=== PATIENT | female | born 1955 | race Caucasian/White ===

== ENCOUNTER → 2019-09-22 07:54 | Outpatient (CLI) | payer MEDICARE, SELFPAY ==
--- NOTE | ~2019-09-22 | MR_ITS ---
EXAMINATION: MR lumbar spine wo con EXAM DATE: 09/22/2019 08:29 INDICATION: Right leg pain., Now also starting in left leg. TECHNIQUE: Multi-sequential, multiplanar MR images of the lumbar spine were obtained without contrast . Sagittal T1, T2, T2 fat saturation images. Axial T2 weighted images. Comparison is made to prior examination from 03/29/2019. FINDINGS: There is 3 mm anterolisthesis L4 on L5 with moderate disc disease at this level. Mild disc disease at the other thoracolumbar levels. The conus medullaris terminates at the L1/2 level and has normal signal intensity and morphology. Diffusely mildly heterogeneous bone marrow, unchanged. No fo evelin suspicious marrow lesions. Large cystic liver lesion incompletely imaged, imaged portion is consi stent with a cyst. Level by level evaluation: T11-12: Disc does not extend beyond the endplate margin. Facet arthropathy: Mild. Neural foraminal stenosis: No stenosis. Central canal stenosis: No stenosis. T12-L1: Disc does not extend beyond the endplate margin. Facet arthropathy: Mild. Neural foraminal stenosis: No stenosis. Central canal stenosis: No stenosis. L1-L2: There is a minimal diffuse disc bulge. Facet arthropathy: Mild. Neural foraminal stenosis: No stenosis. Central canal stenosis: No stenosis. L2-L3: There is a mild diffuse disc bulge. Facet arthropathy: Mild to moderate. Neural foraminal stenosis: Mild bilateral. Central canal stenosis: Mild. L3-L4: There is a mild diffuse disc bulge. Facet arthropathy: Mild to moderate. Neural foraminal stenosis: Mild to moderate. Central canal stenosis: Mild. L4-L5: There is a mild to moderate diffuse disc bulge. Facet arthropathy: Severe. Bilateral synovial cysts into lateral recesses, larger on the right. Neural foraminal stenosis: Moderate bilateral. Central canal stenosis: Moderate to severe. L5-S1: There is a mild diffuse disc bulge. Facet arthropathy: Moderate. Neural foraminal stenosis: No stenosis. Central canal stenosis: No stenosis. Compared to March, there has been no significant interval change. IMPRESSION: L4-5 moderate to severe central canal stenosis, mostly from facet arthropathy and synovia l cysts, larger on the right. Reviewed, dictated and finalized at location G. IMPRESSION: L4-5 moderate to severe central canal stenosis, mostly from facet a rthropathy and synovial cysts, larger on the right.
== END ==
PROVIDERS: PCP Family Medicine
DX: M71.30 Other bursal cyst, unspecified site (principal); M48.061 Spinal stenosis, lumbar region without neurogenic claudication
CPT/HCPCS: 72148

== ENCOUNTER 2020-01-18 08:16 | Outpatient (NON) | payer MEDICARE, SELFPAY ==
[2020-01-18 18:18] LABS: SARS-CoV-2 RNA PCR Negative
== END 2020-01-18 08:17 ==
PROVIDERS: PCP Family Medicine; Visit Provider Nurse Practitioner Family
DX: Z20.828 Contact with and (suspected) exposure to other viral communicable diseases (principal)
CPT/HCPCS: 87635; C9803; U0003

== ENCOUNTER 2020-07-02 08:25 | Outpatient (CLI) | payer MEDICARE, SELFPAY | END 2020-07-02 08:26 | disposition home or self-care (01) | LOC: ANHAUDASC 08:29 | PROVIDERS: PCP Family Medicine; Visit Provider Family Medicine | DX: H91.93 Unspecified hearing loss, bilateral (principal); H93.13 Tinnitus, bilateral | CPT/HCPCS: 92557; 92567 ==

== ENCOUNTER 2020-12-24 08:18 | Outpatient (RCR) | payer MEDICARE, SELFPAY ==
[2020-12-24] MEDS: ACETAMINOPHEN 325 MG TABLET 650 MG PO (08:40)
[2020-12-24] MEDS: diphenhydrAMINE HCl CAP 25 MG CAPSULE PO (08:41)
[2020-12-24] MEDS: FAMOTIDINE 20 MG TABLET PO (08:41)
[2020-12-24 08:56] VITALS: BP 103/62; PULSE 71; RESP 18; TEMP 36.7; O2SAT 97
[2020-12-24 09:45] VITALS: BP 122/66
--- NOTE | 2020-12-25 15:07 | PC.NURSE ---
Patient with no concerns after covid antibody infusion. Patient feels just fine
== END 2020-12-24 15:43 | disposition home or self-care (01) ==
LOC: AMCINF 08:18
PROVIDERS: PCP Family Medicine; Referring Provider Family Medicine; Visit Provider Internal Medicine Hematology & Oncology
DX: Z23 Encounter for immunization (principal); U07.1 COVID-19
CPT/HCPCS: A9270; J7050; M0243; Q0244

== ENCOUNTER → 2021-05-18 10:11 | Outpatient (CLI) | payer MEDICARE, SELFPAY ==
--- NOTE | ~2021-05-18 | MM_ITS ---
EXAMINATION: MM screening [facility] BI w pat HISTORY: Screening mammogram TECHNIQUE: Craniocaudal and mediolateral oblique 3-D tomosynthesis images were obtained and synthetic 2-D images were generated. CAD analysis was submitted and interpreted. COMPARISON: 11/09/1917, 11/06/2017 BREAST PARENCHYMAL COMPOSITION: There are scattered areas of fibroglandular density. FINDINGS: Scattered benign-appearing calcifications are present. There is no evidence of suspicious m ass, calcification, or architectural distortion to suggest malignancy in either breast. There has bee n no suspicious interval change. IMPRESSION: 1. No mammographic evidence of malignancy. 2. Recommend routine screening mammography in one year. BI-RADS Category 2: Benign finding(s). Reviewed, dictated and finalized at location A. RY ARTIST
== END ==
PROVIDERS: PCP Obstetrics & Gynecology; Visit Provider Obstetrics & Gynecology
DX: Z12.31 Encounter for screening mammogram for malignant neoplasm of breast (principal)
CPT/HCPCS: 77063; 77067

== ENCOUNTER 2021-08-12 15:49 | Outpatient (CLI) | payer MEDICARE, SELFPAY ==
--- NOTE | 2021-08-12 16:17 | ECG_ITS ---
Measurements Intervals [place] Rate: 66 P: 22 SD: 200 QRS: -19 QRSD: 76 T: 14 QT: 419 QTc: 440 Interpretive Statements SINUS RHYTHM BASELINE ARTIFACT- I, II, III, AVR, AVL, AVF NORMAL ECG Electronically Signed On 08-12-2021 16:36:11 CDT by Tony Ventura D.O.
[2021-08-12 16:22] LABS: Hematocrit 39.1 % (37.0-47.0); Hemoglobin 13.4 g/dL (12.0-15.0); Mean Corpuscular HGB Conc 34.3 g/dl (32-36); Mean Corpuscular Hemoglobin 31.4 pg (26-34); Mean Corpuscular Volume 91.6 fl (80-100); Mean Platelet Volume 11.1 fl (7.4-10.4); Platelet Count Result 232 k/mm3 (150-375); Red Blood Count 4.27 M/mm3 (4.2-5.4); Red Cell Distribution Width 13.5 % (11.5-14.5); White Blood Count 7.2 K/mm3 (4.5-10.0)
[2021-08-12 17:16] LABS: Alanine Aminotransferase 18 U/L (6-35); Albumin Level 4.3 g/dL (3.5-5.1); Alkaline Phosphatase 105 U/L (38-126); Anion Gap 10 mmol/L (8-16); Aspartate Amino Transferase 31 U/L (14-36); Bilirubin,Total 0.8 mg/dL (0.2-1.3); Blood Urea Nitrogen 29 mg/dL (7-17); Carbon Dioxide 32 mmol/L (22-30); Chloride 89 mmol/L (98-107); Estimated Glomerular Filt Rate 38; Glucose 110 mg/dL (65-110); Potassium 2.7 mmol/L (3.4-5.0); Sodium 131 mmol/L (137-145)
== END 2021-08-12 15:50 | disposition home or self-care (01) ==
LOC: ANHLAB 15:53
PROVIDERS: PCP Obstetrics & Gynecology; Visit Provider Nurse Practitioner Family
DX: R07.9 Chest pain, unspecified (principal); Z20.828 Contact with and (suspected) exposure to other viral communicable diseases
CPT/HCPCS: 36415; 80053; 85027; 93005

== ENCOUNTER 2021-08-16 08:04 | Outpatient (CLI) | payer MEDICARE, SELFPAY ==
[2021-08-16 09:59] LABS: Anion Gap 10 mmol/L (8-16); Blood Urea Nitrogen 25 mg/dL (7-17); Calcium 9.1 mg/dL (8.4-10.2); Carbon Dioxide 27 mmol/L (22-30); Chloride 102 mmol/L (98-107); Estimated Glomerular Filt Rate 55; Glucose 121 mg/dL (65-110); Sodium 139 mmol/L (137-145)
== END 2021-08-16 08:05 | disposition home or self-care (01) ==
PROVIDERS: PCP Family Medicine; Visit Provider Nurse Practitioner Family
DX: U07.1 COVID-19 (principal); E87.6 Hypokalemia; N28.9 Disorder of kidney and ureter, unspecified
CPT/HCPCS: 36415; 80048; 84443

== ENCOUNTER 2021-09-20 08:25 | Outpatient (CLI) | payer MEDICARE, SELFPAY ==
--- NOTE | ~2021-09-20 | NM_ITS ---
EXAMINATION: NM trinh stress w perfusion DATE: 09/20/2021 11:41 INDICATION: Chest pain TECHNIQUE: Rest images were obtained following intravenous administration of 10.9 mCi Tc99m tetrofosm in (Myoview). The patient was infused intravenously with Lexiscan (Regadenoson). Then, 33.6 mCi Tc99m tetrofosmin (Myoview) was administered intravenously, and stress images were obtained. Data was clare nstructed into short axis and horizontal and vertical long axis SPECT images. Gated SPECT images were also obtained. COMPARISON: None. FINDINGS: There is no definite reversible or fixed perfusion abnormality to suggest ischemia or infar ction. There is normal left ventricular chamber size, wall motion and ejection fraction. Left ventr icular ejection fraction measures >70%. IMPRESSION: 1. Normal myocardial perfusion at rest and during stress. 2. Left ventricular ejection fraction measuring >70%. Reviewed, dictated and finalized at location A.
--- NOTE | 2021-09-20 08:47 | EST_ITS ---
Patient Info Name: Jinny Berrios Age: 66 years : 1955 Gender: Female Ht: 68 in Wt: 200 lbs BSA: 2.11 m2 HR: 68 bpm BP: 126 / 72 mmHg Heart Rhythm: Sinus Rhythm Exam Date: 09/20/2021 9:33 AM Exam Location: [facility] [place] Stress Patient Status: Outpatient Admit Date: 09/20/2021 Staff Ordering Physician: Jennifer Murdock Attending Provider: Jennifer Murdock Exercise Technologist: Lisa Kraus CT Exercise Physician: Tony Ventura DO Exam Type: CA stress trinh w NM Study Info Indications R07.9 - Chest pain, unspecified A regadenoson stress test was performed. Summary 1. 1. Negative lexiscan stress test for ischemic ST changes by ECG criteria. 2. 2. Stable hemodynamics throughout the test. 3. 3. Nuclear scan to follow and will be reported separately. Please correlate with it. 4. 4. Patient informed of the above results. Protocol: Lexiscan Stress ECG Details Stage: REST Duration (min): 0 min : 57 sec HR (bpm): 66 SBP (mmHg): 126 DBP (mmHg): 72 Stage: REST Duration (min): 5 min : 29 sec HR (bpm): 67 SBP (mmHg): 126 DBP (mmHg): 72 Stage: STAGE 1 Duration (min): 1 min : 0 sec HR (bpm): 73 SBP (mmHg): 126 DBP (mmHg): 81 Stage: RECOVERY Duration (min): 1 min : 0 sec HR (bpm): 91 SBP (mmHg): 126 DBP (mmHg): 81 Stage: RECOVERY Duration (min): 2 min : 0 sec HR (bpm): 93 SBP (mmHg): 126 DBP (mmHg): 81 Stage: RECOVERY Duration (min): 2 min : 45 sec HR (bpm): 90 SBP (mmHg): 118 DBP (mmHg): 76 Rest HR: 67 bpm Peak HR: 93 bpm Rest Sys BP: 126 mmHg Peak Sys BP: 126 mmHg Max Pred HR: 152 bpm % Max Pred HR: 61 % Target HR: 129 bpm Max RPP: 11,718 bpm*mmHg Termination Reason: Completed protocol Total Time: 1 min : 0 sec Rest Valenzuela BP: 72 mmHg Peak Valenzuela BP: 81 mmHg Total Dose: 0.4 mg Resting ECG Sinus rhythm. Stress ECG No ST changes. Arrhythmias None. Report Signatures
== END 2021-09-20 08:26 | disposition home or self-care (01) ==
PROVIDERS: PCP Family Medicine; Visit Provider Nurse Practitioner Family
DX: R07.9 Chest pain, unspecified (principal)
CPT/HCPCS: 78452; 93017; A9502; J2785

== ENCOUNTER 2021-11-16 07:52 | Outpatient (CLI) | payer MEDICARE, SELFPAY ==
--- NOTE | ~2021-11-16 | MR_ITS ---
EXAMINATION: MR lumbar spine wo/w con DATE: 11/16/2021 08:38 INDICATION: Low back pain radiating to the right heel. TECHNIQUE: Magnetic resonance imaging (MRI) of the lumbar spine was performed without and with 18 mL MultiHance intravenous contrast. COMPARISON: Lumbar spine MRI 09/22/2019 FINDINGS: There are cysts in the liver measuring up to 14.0 cm. There is 4 mm anterolisthesis of L4 o n L5 and 3 mm anterolisthesis of L5 on S1. There is mild chronic anterior wedging of T11 and T12 vert ebral bodies. There is mildly decreased disc height at L1-L2, L2-L3, and L3-L4 and moderately decreas ed disc height at L4-L5 with endplate remodeling. The distal spinal cord signal intensity is normal. The conus medullaris is at L1-L2. The following disc levels are specifically discussed: L1-L2: The disc is bulging and has an annular fissure. There is moderate bilateral facet joint osteoa rthritis. There is mild bilateral neural foraminal stenosis. There is mild central canal stenosis. L2-L3: The disc is bulging and has an annular fissure. There is severe bilateral facet joint osteoart hritis. There is mild bilateral neural foraminal stenosis. There is mild central canal stenosis. L3-L4: The disc is bulging and has an annular fissure. There is severe bilateral facet joint osteoart hritis. There is moderate bilateral neural foraminal stenosis. There is mild central canal stenosis. L4-L5: The disc is bulging and has an annular fissure. There is severe bilateral facet joint osteoart hritis. There is a 6 mm synovial cyst from left facet joint and left lateral recess. There is mild bi lateral neural foraminal stenosis. There is mild central canal stenosis with changes of posterior dec ompression. There is moderate stenosis of left lateral recess. L5-S1: The disc does not extend beyond the endplate margin. There is severe bilateral facet joint ost eoarthritis. There is mild bilateral neural foraminal stenosis. There is no central canal stenosis. IMPRESSION: 1. Moderate lumbar spondylosis with interval improvement in central canal stenosis at L4-L5 status po st posterior decompression. Reviewed, dictated and finalized at location A. IMPRESSION: 1. Moderate lumbar spondylosis with interval improvement in central canal steno sis at L4-L5 status post posterior decompression.
== END 2021-11-16 07:53 | disposition home or self-care (01) ==
LOC: ANHIMG 07:54
PROVIDERS: PCP Family Medicine; Visit Provider Nurse Practitioner Family
DX: M47.26 Other spondylosis with radiculopathy, lumbar region (principal); Z98.890 Other specified postprocedural states
CPT/HCPCS: 72158; A9577

== ENCOUNTER 2022-01-04 18:01 | Emergency (ER) | payer MEDICARE, SELFPAY ==
--- NOTE | ~2022-01-04 | CT_ITS ---
EXAMINATION: CT brain wo con DATE: 01/04/2022 20:31 INDICATION: intemittent lightheadedness over 1 week . TECHNIQUE: Computed tomography (CT) of the head was performed without intravenous contrast. The mA wa s adjusted according to patient size. Iterative reconstruction technique was employed. The dose-lengt h product was 605.33 mGy-cm. COMPARISON: None FINDINGS: No acute intracranial hemorrhage or extra-axial fluid collection. No hydrocephalus, mass, or herniation. No acute ischemic infarct. Unremarkable dural venous sinus attenuation. No acute osseous abnormality. The aerated spaces are clear. Mild atrophy and moderate chronic white matter change. Atherosclerotic intracranial calcifications. IMPRESSION: No acute intracranial process. Reviewed, dictated and finalized at location K.
--- NOTE | ~2022-01-04 | XR_ITS ---
EXAMINATION: XR chest 1V Exam Date/Time: 01/04/2022 20:34 CDT HISTORY: DIZZINESS X 1 WEEK. NO CHEST COMPLAINTS. HX HTN Comparison: None available. RESULT: Lines, tubes, and devices: None. Lungs and pleura: Minimal streaky opacities in the lung bases likely representing atelectasis and/or scar. Mild senescent change. Cardiomediastinal silhouette: Stable. Other: No acute osseous or upper abdominal finding. IMPRESSION: No acute cardiopulmonary process. Reviewed, dictated and finalized at location K.
--- NOTE | 2022-01-04 18:08 | ECG_ITS ---
Measurements Intervals [place] Rate: 75 P: 72 [place]: 190 QRS: -21 QRSD: 73 T: 31 QT: 387 QTc: 434 Interpretive Statements SINUS RHYTHM WITH OCCASIONAL SUPRAVENTRICULAR PREMATURE COMPLEXES LOW QRS VOLTAGE IN PRECORDIAL LEADS BORDERLINE ECG COMPARED TO ECG 08/12/2021 16:25:50 NO SIGNIFICANT CHANGES Electronically Signed On 01-05-2022 15:38:24 CDT by Jason Sumner M.D.
[2022-01-04 18:15] VITALS: BP 135/75; PULSE 76; RESP 18; TEMP 36.1; O2SAT 97
--- NOTE | 2022-01-04 19:48 | ED.DIZZY ---
HPI - Dizziness General Chief Complaint: Dizziness Stated Complaint: lightheaded Time Seen by Provider: 01/04/22 19:47 History of Present Illness HPI Narrative: Patient is a 66-year-old female with a history of hypertension, GERD presenting with episodes of lightheadedness. Patient states that for the last 6 days she has had recurrent episodes of brief lightheadedness. She denies vertigo. States that these episodes last approximately 3 seconds. No alleviating or exacerbating factors. She spoke with her PCP earlier this week and told him that she had not been taking her nebivolol so they recommended that she refill it and start taking it. She has been taking it for the last couple of days but she continues to have these symptoms. She otherwise denies complaints. No headache, fevers, numbness or weakness, ataxia, vision changes, speech changes, chest pain, shortness of breath, palpitations, abdominal pain, nausea or vomiting, diarrhea, dysuria, leg swelling. Related Data Home Medications Medication Instructions Recorded Confirmed furosemide 20 mg tablet 20 mg PO DAILY 10/14/21 11/18/21 Allergies Allergy/AdvReac Type Severity Reaction Status Date / Time hydrocodone Allergy Unknown NAUSEA AND Verified 11/18/21 14:35 VOMITING penicillin G Allergy Unknown A Verified 11/18/21 14:35 CHILD-UNKNOWN REACTION Sulfa (Sulfonamide Allergy Unknown A Verified 11/18/21 14:35 Antibiotics) CHILD-UNKNOWN REACTION Review of Systems Review of Systems: All systems reviewed & are unremarkable except as noted in HPI and below PMFSH Past Medical History Medical History Bilateral tinnitus BMI 29.0-29.9,adult BMI 30.0-30.9,adult BMI greater than 30 Excessive cerumen in right ear canal Hearing loss Lumbar stenosis Synovial cyst of lumbar spine Family History Family History Father Lung cancer Mother Liver cancer Sibling Hypertension Social History Social History Smoking packs per day: 1.5 Smoking cigarettes per day: 30.0 Years smoked: 16 Smoking pack-years: 24.00 Smoking status: Former smoker Tobacco type: cigarettes Second hand tobacco smoke exposure: No Smoking end date: 01/14/96 Alcohol intake: current Drinks per week: 6 Substance use: never Substance use type: does not use 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 HEAD: Normocephalic, atraumatic. EYES: PERRLA and EOMI. ENT: Nares clear, no rhinorrhea or epistaxis. Mucous membranes moist. NECK: Supple. CHEST: Clear to auscultation. No respiratory distress. HEART: Regular rate and rhythm. No murmur heard. Normal peripheral pulses. ABDOMEN: Soft, nontender, nondistended, normal active bowel sounds. EXTREMITIES: Normal range of motion. No edema. SKIN: Warm, dry, no rash. NEURO: No focal deficits. Alert and oriented x3. [id number] intact, no pronator drift PSYCH: Normal mood and affect. Course Course Emergency Course: Patient is a 66-year-old female presenting with episodes of lightheadedness. Vitals are within normal limits. Patient is well-appearing and in no acute distress. Exam is unremarkable. EKG per my interpretation shows normal sinus rhythm, left axis deviation, normal intervals, nonspecific T wave flattening in inferior leads, no ST elevations or depressions. Appears unchanged from prior EKG in July 2021. Blood work with hypokalemia and hypomagnesemia. These were repleted orally. CT head and chest x-ray are unremarkable. Reevaluation, the patient states that she feels well. She has not had recurrence of these e
--- NOTE | 2022-01-04 20:23 | PC.NURSE ---
Pt able to ambulate to bathroom with steady gait.
--- NOTE | 2022-01-04 20:27 | PC.NURSE ---
Pt to imaging via stretcher at this time.
[2022-01-04] MEDS: SODIUM CHLORIDE 0.9% IV 1,000 ML 999 ML IV CONT (20:46)
[2022-01-04 20:52] LABS: Basophils Absolute Auto 0.1 K/mm3 (0.0-0.1); Basophils Percent Auto 0.8 % (0.2-1.2); Eosinophils Absolute Auto 0.4 K/mm3 (0-0.3); Eosinophils Percent Auto 4.5 % (0-4.4); Hematocrit 39.7 % (37.0-47.0); Hemoglobin 13.5 g/dL (12.0-15.0); Immature Granulocyte Absolute 0.02 K/mm3 (0.00-0.031); Immature Granulocyte Percent A 0.2 % (0-0.5); Lymphocytes Absolute Auto 2.31 K/mm3 (0.9-3.2); Lymphocytes Percent Auto 26.9 % (18.3-44.2); Mean Corpuscular Hemoglobin 32.2 pg (26-34); Mean Corpuscular Volume 94.7 fl (80-100); Mean Platelet Volume 11.5 fl (7.4-10.4); Monocytes Absolute Auto 0.6 K/mm3 (0.1-0.6); Monocytes Percent Auto 6.7 % (2.6-8.5); Neutrophils Absolute Auto 5.2 K/mm3 (1.3-6.7); Neutrophils Percent Auto 60.9 % (45.5-73.1); Platelet Count Result 307 k/mm3 (150-375); Red Blood Count 4.19 M/mm3 (4.2-5.4); Red Cell Distribution Width 13.5 % (11.5-14.5); White Blood Count 8.6 K/mm3 (4.5-10.0)
[2022-01-04 20:54] VITALS: BP 117/68; PULSE 66; RESP 16; O2SAT 97
[2022-01-04 20:57] LABS: Add Urine Microscopic? YES; Appearance Urine Cloudy (Clear); Bilirubin Urine Negative (Negative); Blood Urine 1+ (Negative); Color Urine Yellow (Yellow); Glucose Urine UA Negative (Negative); Hyaline Casts Urine 20-29 /lpf; Ketones Urine Negative (Negative); Leukocyte Esterase Ur 1+ LEU/UL (Negative); Mucus Urine Rare /lpf; Nitrate Urine Negative (Negative); Protein Urine Negative (Negative); Specific Grav Ur 1.017 (1.001-1.035); Squamous Epithelial Cell Urine Moderate /hpf (Few); Urobilinogen Urine Negative mg/dL (<2.0)
[2022-01-04 21:01] LABS: Alanine Aminotransferase 19 U/L (6-35); Albumin Level 4.1 g/dL (3.5-5.1); Alkaline Phosphatase 99 U/L (38-126); Anion Gap 10 mmol/L (8-16); Aspartate Amino Transferase 28 U/L (14-36); Bilirubin,Total 0.5 mg/dL (0.2-1.3); Blood Urea Nitrogen 24 mg/dL (7-17); Calcium 8.9 mg/dL (8.4-10.2); Carbon Dioxide 28 mmol/L (22-30); Chloride 98 mmol/L (98-107); Estimated CRCL calculation 44 ml/min; Estimated Glomerular Filt Rate 41; Glucose 116 mg/dL (65-110); Magnesium 1.2 mg/dL (1.6-2.3); Potassium 3.1 mmol/L (3.4-5.0); Sodium 136 mmol/L (137-145)
[2022-01-04 21:03] LABS: Prothrombin Time 13.1 Seconds (11.1-14.7)
[2022-01-04 21:04] LABS: Partial Thromboplastin Time 31.2 SECONDS (22.3-36.8)
[2022-01-04 21:13] LABS: Troponin I < 0.012 ng/mL (0.000-0.034)
[2022-01-04] MEDS: MAGNESIUM OXIDE 400 MG TABLET PO (21:27)
[2022-01-04] MEDS: POTASSIUM CHLORIDE 20 MEQ TABLET 40 MEQ PO (21:27)
[2022-01-04 21:57] VITALS: PULSE 66; RESP 22; O2SAT 98
== END 2022-01-04 21:58 | disposition home or self-care (01) ==
PROVIDERS: Emergency Provider Emergency Medicine; PCP Family Medicine
DX: R42 Dizziness and giddiness (principal); E87.6 Hypokalemia; E83.42 Hypomagnesemia; I10 Essential (primary) hypertension; K21.9 Gastro-esophageal reflux disease without esophagitis; Z87.891 Personal history of nicotine dependence; Z79.899 Other long term (current) drug therapy
CPT/HCPCS: 36415; 70450; 71045; 80053; 81001; 83735; 84484; 85025; 85610; 85730; 87086; 93005; 96360; 99284; A9270; J7030

== ENCOUNTER 2022-02-10 00:19 | Day surgery (SDC) | payer MEDICARE, SELFPAY ==
[2021-10-14 08:31] VITALS: BMI 30.4
[2021-11-18 14:28] VITALS: BMI 30.4
[2022-01-28 13:45] VITALS: BMI 30.4
--- NOTE | 2022-01-28 13:46 | PC.NURSE ---
Spoke with patient regarding upcoming procedure for at 0845. Pt. verbalized understanding and stated that nothing new with medical history since last phone call on 2021. Chart updated.
--- NOTE | 2022-01-31 14:16 | PM.HPGS ---
History of Present Illness History of Present Illness Consent: Risks, benefits, and alternatives have been discussed and questions answered. Patient agrees to proceed with procedure. Chief complaint: neoplasm screening Narrative: Jinny Berrios is a 66 year old female Referred for colon cancer screening. Review of Systems Review of Systems: All systems reviewed & are unremarkable except as noted in HPI and below PMFSH Past Medical History Medical History Bilateral tinnitus BMI 29.0-29.9,adult BMI 30.0-30.9,adult BMI greater than 30 Diarrhea Excessive cerumen in right ear canal Hearing loss Lumbar stenosis Synovial cyst of lumbar spine Family History Family History Father Lung cancer Mother Liver cancer Sibling Hypertension Social History Social History Smoking packs per day: 1.5 Smoking cigarettes per day: 30.0 Years smoked: 16 Smoking pack-years: 24.00 Smoking status: Former smoker Tobacco type: cigarettes Second hand tobacco smoke exposure: No Smoking end date: 01/14/96 Alcohol intake: current Drinks per week: 6 Substance use: never Substance use type: does not use Living arrangements: with family 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 Gender identity (if verbalized by the patient): Female Spiritual care concerns: No Meds Home Medications and Allergies Home Medications Medication Instructions Recorded Confirmed Type omeprazole 20 mg tablet,delayed 20 mg PO DAILY #90 tabs 06/11/21 02/10/22 Rx release furosemide 20 mg tablet 20 mg PO DAILY 10/14/21 02/10/22 History ibuprofen 800 mg tablet 800 mg PO TID PRN pain #120 tabs 10/22/21 02/10/22 Rx hydrochlorothiazide 12.5 mg capsule 12.5 mg PO DAILY #90 caps 11/13/21 02/10/22 Rx tramadol 50 mg tablet 50 mg PO Q6H PRN pain #120 tabs 11/26/21 02/10/22 Rx nebivolol 20 mg tablet (Bystolic) 20 mg PO DAILY #90 tabs 12/29/21 02/10/22 Rx magnesium 200 mg tablet 200 mg PO DAILY #30 tabs 01/14/22 02/10/22 Rx potassium chloride 10 mEq 10 meq PO QID #120 caps 01/23/22 02/10/22 Rx capsule,extended release irbesartan 150 See Rx Instructions .Route 02/03/22 02/10/22 Rx mg-hydrochlorothiazide 12.5 mg .COMPLEX #90 tabs tablet Allergies Allergy/AdvReac Type Severity Reaction Status Date / Time hydrocodone Allergy Unknown NAUSEA AND Verified 02/10/22 07:19 VOMITING penicillin G Allergy Unknown A Verified 02/10/22 07:19 CHILD-UNKNOWN REACTION Sulfa (Sulfonamide Allergy Unknown A Verified 02/10/22 07:19 Antibiotics) CHILD-UNKNOWN REACTION Exam Const: General: alert Orientation/consciousness: patient oriented x3 Resp: Auscultation: clear to auscultation bilaterally Cardio: Rhythm: regular rhythm GI: GI Palp: Yes Soft to palpation and No Tenderness to palpation present (GI) Neuro: General: patient oriented x3 Assessment and Plan Assessment and plan (1) Screening for colon cancer: Code(s): Z12.11 - Encounter for screening for malignant neoplasm of colon Status: Acute Assessment and Plan: Colonoscopy with possible biopsy or polypectomy or cautery or injection of substances.
[2022-02-10 07:21] VITALS: BP 152/72; PULSE 74; RESP 18; TEMP 36.4; O2SAT 100
[2022-02-10] MEDS: LACTATED RINGERS 1,000 ML 150 ML IV CONT (07:25)
--- NOTE | 2022-02-10 08:03 | WPDANESEPPF ---
Anes - Initial Pre Proc Eval Procedure: Operation Date: 02/10/22 08:45 Proposed Procedures p Screening Colonoscopy - Edmundo Amaya MD Date/Time: 02/10/22 08:03 Surgeon: Edmundo Amaya MD Pre Op Diagnosis: neoplasm screening Patient Data Age: 66 Gender: F Height: 1.73 m Weight: 87.7 kg Last Vital Signs Temp 97.6 F 02/10/22 07:21 Pulse 74 02/10/22 07:21 Resp 18 02/10/22 07:21 BP 152/72 H 02/10/22 07:21 Pulse Ox 100 02/10/22 07:21 O2 Del Method Room Air 02/10/22 07:21 Allergies Allergy/AdvReac Type Severity Reaction Status Date / Time hydrocodone Allergy Unknown NAUSEA AND Verified 02/10/22 07:19 VOMITING penicillin G Allergy Unknown A Verified 02/10/22 07:19 CHILD-UNKNOWN REACTION Sulfa (Sulfonamide Allergy Unknown A Verified 02/10/22 07:19 Antibiotics) CHILD-UNKNOWN REACTION Home Medications Medication Instructions Recorded Confirmed Type omeprazole 20 mg tablet,delayed 20 mg PO DAILY #90 tabs 06/11/21 02/10/22 Rx release furosemide 20 mg tablet 20 mg PO DAILY 10/14/21 02/10/22 History ibuprofen 800 mg tablet 800 mg PO TID PRN pain #120 tabs 10/22/21 02/10/22 Rx hydrochlorothiazide 12.5 mg capsule 12.5 mg PO DAILY #90 caps 11/13/21 02/10/22 Rx tramadol 50 mg tablet 50 mg PO Q6H PRN pain #120 tabs 11/26/21 02/10/22 Rx nebivolol 20 mg tablet (Bystolic) 20 mg PO DAILY #90 tabs 12/29/21 02/10/22 Rx magnesium 200 mg tablet 200 mg PO DAILY #30 tabs 01/14/22 02/10/22 Rx potassium chloride 10 mEq 10 meq PO QID #120 caps 01/23/22 02/10/22 Rx capsule,extended release irbesartan 150 See Rx Instructions .Route 02/03/22 02/10/22 Rx mg-hydrochlorothiazide 12.5 mg .COMPLEX #90 tabs tablet Patient hx anesthesia problems: none Family hx anesthesia problems: none Results Review: All pre-operative results and documents have been reviewed as part of the pre-operative evaluation. [facility] Past Medical History Medical History (Updated 01/14/22 @ 15:37 by Charly Brown MD) Bilateral tinnitus BMI 29.0-29.9,adult BMI 30.0-30.9,adult BMI greater than 30 Diarrhea Excessive cerumen in right ear canal Hearing loss Lumbar stenosis Synovial cyst of lumbar spine Family History Family History Father Lung cancer Mother Liver cancer Sibling Hypertension Social History Social History Smoking packs per day: 1.5 Smoking cigarettes per day: 30.0 Years smoked: 16 Smoking pack-years: 24.00 Smoking status: Former smoker Tobacco type: cigarettes Second hand tobacco smoke exposure: No Smoking end date: 01/14/96 Alcohol intake: current Drinks per week: 6 Substance use: never Substance use type: does not use Living arrangements: with family 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 Informed Consent: The patient's anesthetic plan and its attendant risks and benefits were discussed with the patient/family/POA. Questions were solicited and answers provided to the satisfaction of the patient/family/POA.
[2022-02-10 09:04] VITALS: BP 123/70; PULSE 81; RESP 24; O2SAT 93
[2022-02-10 09:14] VITALS: BP 117/67; PULSE 78; RESP 24; O2SAT 98
[2022-02-10 09:24] VITALS: BP 134/74; PULSE 65; RESP 21; O2SAT 97
== END 2022-02-10 09:39 | disposition home or self-care (01) ==
PROVIDERS: PCP Family Medicine; Visit Provider Internal Medicine Gastroenterology
PROC: 0DJD8ZZ Inspection of Lower Intestinal Tract, Via Natural or Artificial Opening Endoscopic (ICD-10-PCS; CPT 45378; principal; 2022-02-10 08:45)
DX: Z12.11 Encounter for screening for malignant neoplasm of colon (principal); K64.8 Other hemorrhoids; K57.30 Diverticulosis of large intestine without perforation or abscess without bleeding; D17.5 Benign lipomatous neoplasm of intra-abdominal organs; Z87.891 Personal history of nicotine dependence
CPT/HCPCS: 45380; 88305; J2704; J7120

== ENCOUNTER 2022-10-06 07:31 | Outpatient (CLI) | payer MEDICARE, SELFPAY ==
[2022-10-06 09:01] LABS: Basophils Absolute Auto 0.1 K/mm3 (0.0-0.1); Basophils Percent Auto 0.8 % (0.2-1.2); Eosinophils Absolute Auto 0.2 K/mm3 (0-0.3); Eosinophils Percent Auto 2.2 % (0-4.4); Hemoglobin 13.6 g/dL (12.0-15.0); Immature Granulocyte Absolute 0.04 K/mm3 (0.00-0.031); Immature Granulocyte Percent A 0.5 % (0-0.5); Lymphocytes Percent Auto 24.7 % (18.3-44.2); Mean Corpuscular Volume 94.1 fl (80-100); Monocytes Absolute Auto 0.6 K/mm3 (0.1-0.6); Monocytes Percent Auto 6.6 % (2.6-8.5); Neutrophils Absolute Auto 5.5 K/mm3 (1.3-6.7); Neutrophils Percent Auto 65.2 % (45.5-73.1); Platelet Count Result 304 k/mm3 (150-375); Red Blood Count 4.25 M/mm3 (4.2-5.4); Red Cell Distribution Width 12.8 % (11.5-14.5); White Blood Count 8.5 K/mm3 (4.5-10.0)
[2022-10-06 09:12] LABS: Albumin Level 4.2 g/dL (3.5-5.1); Anion Gap 9 mmol/L (8-16); Blood Urea Nitrogen 16 mg/dL (7-17); Calcium 9.1 mg/dL (8.4-10.2); Carbon Dioxide 33 mmol/L (22-30); Chloride 94 mmol/L (98-107); Estimated Glomerular Filt Rate 55; Glucose 130 mg/dL (65-110); Hemoglobin A1C 5.6 % (<5.7); Potassium 3.3 mmol/L (3.4-5.0); Sodium 136 mmol/L (137-145); Urine Cotinine NEGATIVE
== END 2022-10-06 07:32 | disposition home or self-care (01) ==
LOC: ANHSURGERY 07:35
PROVIDERS: PCP Family Medicine; Visit Provider Orthopaedic Surgery
DX: Z01.812 Encounter for preprocedural laboratory examination (principal); M17.9 Osteoarthritis of knee, unspecified
CPT/HCPCS: 80048; 80307; 82040; 83036; 85025; 87081

== ENCOUNTER 2022-10-29 01:10 | Day surgery (SDC) | payer MEDICARE, SELFPAY ==
[2022-10-06 07:52] VITALS: BMI 31.9
--- NOTE | 2022-10-06 08:12 | PC.NURSE ---
Report to the Outpatient Waiting Room, entrance under the green pavilion located off [facility], at time _1000 on date _10/29/22 . Planned Procedure Time: _1200 . Time changes happen often and if your time is changed the preop area will call you the afternoon before. - You and your visitor will be asked to self-screen and do not enter if you have any COVID symptoms. - A mask is optional within the hospital at this time. Patients may have clear liquids (water, carbonated beverages, clear teas, apple juice) until 3 hours prior to surgery with a maximum of 20 ounces. - No food from midnight until time of surgery - Infants may have breast milk until 4 hours before surgery, formula 6 hours prior to surgery. - Children will be allowed to drink immediately following surgery. If applicable, please bring a bottle or sippy cup to assist with drinking. Juice, water, soda, and popsicles are readily available. For infants on formula, please bring formula the day of surgery. Pacifiers are allowed. Take the following medications with a SIP of water the morning of surgery: ____NEBIVOLOL DO NOT STOP ANY OF YOUR OTHER PRESCRIPTION MEDICATIONS PRIOR TO SURGERY ?EXCEPT THE FOLLOWING Medications to discontinue per physician __ALL VITAMINS AND SUPPLEMENTS 3 DAYS PRE OP.LAST DOSE 10/26/22. IBUPROFEN 7 DAYS PRE OP PER DR APPLE.LAST DOSE 10/21/22 Please no make-up, nail slovenian, hairspray, perfume, deodorant, or body powder the day of surgery. No jewelry (including any body piercings) or valuables the day of surgery, leave them at home. Please take a shower or bath the night before, or the morning of, surgery with an antibacterial soap. Wear comfortable, loose fitting clothing. Children are encouraged to wear pajamas. - Jewelry must be removed prior to entering the operating room. Rings and piercings that are not removed may be cut off. - The hospital will not accept responsibility for valuables. - Please leave all valuables, including medications, at home the day of surgery. If you are going home after surgery, a licensed road train driver must drive you home. - NO public transportation without another adult if you receive anesthesia. - We recommend that an adult stay with you for 24 hours following discharge. - We also recommend that you do not drive, make important decision, drink alcoholic beverages, or take any drugs that were not prescribed by your health care provider for at least 24 hours after your discharge time. For Pediatric surgeries, we recommend two adults accompany the child home. Follow any additional instructions given to you from your surgeon. If you or anyone in your household have experienced Covid symptoms in the past week, please notify your surgeon or the nurse liaison at the phone number below for possible testing. VERBAL AND WRITTEN instructions given to __PATIENT and asked if any additional questions and then verbalized understanding. Patient advised to call surgeon office or pre surgery nurse liaison [phone] if any additional questions.
[2022-10-06 08:25] VITALS: BP 140/84; PULSE 71; RESP 18; TEMP 36.6; O2SAT 99
--- NOTE | 2022-10-27 15:47 | PM.IMHP ---
H&P: HPI History of Present Illness Date/Time: 10/27/22 15:47 Chief Complaint: Bilateral knee DJD Narrative: 67-year-old female who presents today for a right total knee arthroplasty with cortisone injection in the left knee. Patient has severe lateral compartment osteoarthritis in both knees. She had cortisone injection in June of this year with mild improvement of her symptoms. She has been on ibuprofen 800 mg 3 times a day. She is having symptoms on a daily basis. It is limiting her activities at this point patient feels she is ready to proceed with total knee arthroplasty rather continue nonsurgical treatment. Review of Systems Review of Systems: All systems reviewed & are unremarkable except as noted in HPI and below PMFSH Past Medical History Medical History (Updated 09/16/22 @ 10:34 by Charly Brown MD) Bilateral tinnitus BMI 29.0-29.9,adult BMI 30.0-30.9,adult BMI greater than 30 Diarrhea Excessive cerumen in right ear canal Hearing loss Lumbar stenosis Osteoarthritis, knee Synovial cyst of lumbar spine Family History Family History Father Lung cancer Mother Liver cancer Sibling Hypertension Social History Social History Smoking packs per day: 1.5 Smoking cigarettes per day: 30.0 Years smoked: 16 Smoking pack-years: 24.00 Smoking status: Former smoker Tobacco type: cigarettes Second hand tobacco smoke exposure: No Smoking end date: 03/23/95 Additional smoking assessment comments: DENIES ANY FORM OF TOBACCO USE Alcohol intake: current Drinks per week: 6 Substance use: never Substance use type: does not use Living arrangements: alone Occupation/Education: occupation 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 Gender identity (if verbalized by the patient): Female Spiritual care concerns: No Meds Home Medications and Allergies Home Medications Medication Instructions Recorded Confirmed Type magnesium 200 mg tablet 200 mg PO DAILY #30 tabs 01/14/22 10/06/22 Rx omeprazole 20 mg tablet,delayed 20 mg PO DAILY #90 tabs 03/17/22 10/06/22 Rx release irbesartan 150 See Rx Instructions .Route 06/07/22 10/06/22 Rx mg-hydrochlorothiazide 12.5 mg .COMPLEX #90 tabs tablet ibuprofen 800 mg tablet 800 mg PO TID PRN pain #120 tabs 06/25/22 10/06/22 Rx nebivolol 20 mg tablet (Bystolic) 20 mg PO DAILY #90 tabs 06/25/22 10/06/22 Rx potassium chloride 10 mEq 10 meq PO QID #120 caps 07/28/22 10/06/22 Rx capsule,extended release tramadol 50 mg tablet 50 mg PO Q6H PRN pain #120 tabs 07/28/22 10/06/22 Rx furosemide 20 mg tablet 20 mg PO DAILY #90 tabs 08/22/22 10/06/22 Rx hydrochlorothiazide 12.5 mg capsule 12.5 mg PO DAILY #90 caps 08/22/22 10/06/22 Rx biotin 2,500 mcg capsule 2,500 mcg PO DAILY 10/06/22 10/06/22 History Allergies Allergy/AdvReac Type Severity Reaction Status Date / Time hydrocodone Allergy Unknown NAUSEA AND Verified 10/06/22 07:53 VOMITING penicillin G Allergy Unknown A Verified 10/06/22 07:53 CHILD-UNKNOWN REACTION Sulfa (Sulfonamide Allergy Unknown A Verified 10/06/22 07:53 Antibiotics) CHILD-UNKNOWN REACTION Exam Narrative: 67-year-old female alert pleasant. She is 5 ft 5 and 197 lb her BMI is 32.8. She has range of motion of the right knee from 12-140 degrees. There is a valgus deformity noted. 2+ dorsalis pedis and absent posterior tibial artery pulse. Normal sensation both lower extremities. Normal strength in all muscle groups right lower extremity. No edema in either lower extremity. There is no effusion in the knee. No obvious instability in the knee. Hip range of motion is full without discomfort. Resp: Auscultation: clear to auscultation bilaterally Cardio: Rate: regular rate Rhythm: regular rhythm Assessment
[2022-10-29] VITALS (10 sets, daily range): BP systolic 115–139; BP diastolic 52–92; PULSE 77–102; RESP 16–24; TEMP 36.2–36.6; O2SAT 94–100
--- NOTE | ~2022-10-29 | XR_ITS ---
EXAM: [id number] DATE: 10/29/2022 19:20 HISTORY: RIGHT TOTAL KNEE . COMPARISON: None available. FINDINGS/IMPRESSION: Expected postsurgical changes, status post right total knee arthroplasty, with n o radiographic evidence of procedure or hardware related complication. Reviewed, dictated and finalized at location K.
[2022-10-29 11:06] LABS: Magnesium 1.4 mg/dL (1.6-2.3); Potassium 2.9 mmol/L (3.4-5.0)
[2022-10-29] MEDS: ACETAMINOPHEN 500 MG TABLET 1000 MG PO ×2 (11:45→23:29)
[2022-10-29] MEDS: TRANEXAMIC ACID 1,000MG/ISO100 1,000 MG/100 ML BAG 200 MG IVPB (11:45)
[2022-10-29] MEDS: LACTATED RINGERS 1,000 ML 30 ML IV CONT ×3 (12:30→19:50)
--- NOTE | 2022-10-29 13:31 | WPDANESEPPF ---
Anes - Initial Pre Proc Eval Procedure: Operation Date: 10/29/22 12:00 Proposed Procedures p Right Total Knee Arthroplasty - Aj Avendaño MD s Cortisone Injection Left Knee - Aj Avendaño MD Date/Time: 10/29/22 13:31 Surgeon: Aj Avendaño MD Pre Op Diagnosis: co arthritis both knees Patient Data Age: 67 Gender: F Height: 1.7 m Weight: 94.7 kg Last Vital Signs Temp 36.6 C 10/06/22 08:25 Pulse 71 10/06/22 08:25 Resp 18 10/06/22 08:25 BP 140/84 10/06/22 08:25 Pulse Ox 99 10/06/22 08:25 O2 Del Method Room Air 10/06/22 08:25 Allergies Allergy/AdvReac Type Severity Reaction Status Date / Time hydrocodone Allergy Unknown NAUSEA AND Verified 10/29/22 12:06 VOMITING penicillin G Allergy Unknown A Verified 10/29/22 12:06 CHILD-UNKNOWN REACTION Sulfa (Sulfonamide Allergy Unknown A Verified 10/29/22 12:06 Antibiotics) CHILD-UNKNOWN REACTION Home Medications Medication Instructions Recorded Confirmed Type magnesium 200 mg tablet 200 mg PO DAILY #30 tabs 01/14/22 10/06/22 Rx omeprazole 20 mg tablet,delayed 20 mg PO DAILY #90 tabs 03/17/22 10/06/22 Rx release irbesartan 150 See Rx Instructions .Route 06/07/22 10/06/22 Rx mg-hydrochlorothiazide 12.5 mg .COMPLEX #90 tabs tablet ibuprofen 800 mg tablet 800 mg PO TID PRN pain #120 tabs 06/25/22 10/06/22 Rx nebivolol 20 mg tablet (Bystolic) 20 mg PO DAILY #90 tabs 06/25/22 10/29/22 Rx potassium chloride 10 mEq 10 meq PO QID #120 caps 07/28/22 10/06/22 Rx capsule,extended release tramadol 50 mg tablet 50 mg PO Q6H PRN pain #120 tabs 07/28/22 10/06/22 Rx furosemide 20 mg tablet 20 mg PO DAILY #90 tabs 08/22/22 10/06/22 Rx hydrochlorothiazide 12.5 mg capsule 12.5 mg PO DAILY #90 caps 08/22/22 10/06/22 Rx biotin 2,500 mcg capsule 2,500 mcg PO DAILY 10/06/22 10/06/22 History Laboratory Tests 10/29/22 10:53 Potassium 2.9 L mmol/L (3.4-5.0) Magnesium 1.4 L mg/dL (1.6-2.3) Blood Type O Positive Antibody Screen Negative Patient hx anesthesia problems: post op nausea/vomiting Family hx anesthesia problems: none Results Review: All pre-operative results and documents have been reviewed as part of the pre-operative evaluation. [facility] Past Medical History Medical History Bilateral tinnitus BMI 29.0-29.9,adult BMI 30.0-30.9,adult BMI greater than 30 Diarrhea Excessive cerumen in right ear canal Hearing loss Lumbar stenosis Osteoarthritis, knee Synovial cyst of lumbar spine Family History Family History Father Lung cancer Mother Liver cancer Sibling Hypertension Social History Social History Smoking packs per day: 1.5 Smoking cigarettes per day: 30.0 Years smoked: 16 Smoking pack-years: 24.00 Smoking status: Former smoker Tobacco type: cigarettes Second hand tobacco smoke exposure: No Smoking end date: 03/23/95 Additional smoking assessment comments: DENIES ANY FORM OF TOBACCO USE Alcohol intake: current Drinks per week: 6 Substance use: never Substance use type: does not use Living arrangements: alone Occupation/Education: occupation 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
--- NOTE | 2022-10-29 14:01 | WPDHPUPDATE1 ---
History and Physical Update Update Date/Time: 10/29/22 14:01 History and Physical has been reviewed, including an updated exam of the patient. There are NO changes in the patient's condition. Mag 1.4, K+ 2.9. Anesth aware Risks, benefits, and alternatives have been discussed and questions answered. Patient agrees to proceed with procedure.
[2022-10-29] MEDS: SCOPOLAMINE 1.5 MG PATCH TRANSDERM (14:03)
[2022-10-29] MEDS: ceFAZolin 2 GM/D5W 50 ML 2 GM/50 ML BAG IVPB (14:21)
[2022-10-29] MEDS: methylPREDNISolone ACETATE 80 MG/ML VIAL IM (14:40)
[2022-10-29] MEDS: LIDOCAINE HCL 1% PF INJ 5 ML VIAL 3 ML INFILTRATE (14:40)
[2022-10-29] MEDS: ceFAZolin SODIUM 1 GM VIAL 3 GM (15:12)
[2022-10-29] MEDS: TRANEXAMIC ACID 1,000 MG/10 ML AMPUL 1000 MG IV PUSH (16:15)
[2022-10-29] MEDS: GENTAMICIN BONE CEMENT REFOBACIN 1 EACH TOPICAL (17:28)
[2022-10-29] MEDS: ceFAZolin SODIUM 1 GM VIAL 2 GM IV PUSH (17:50)
--- NOTE | 2022-10-29 19:25 | W.PM.PROC2 ---
Procedure Note - Detailed Date of Procedure 10/29/22 Pre-op Diagnosis OA both knees Post-op Diagnosis Same Procedure Performed Cortisone injection left knee, right total knee arthroplasty. Surgeon Aj Avendaño MD Dough Puncher Liam Anesthesia General Description of Procedure Patient was brought to the operating room and general anesthesia was administered. After ChloraPrep prep, 80 mg of Depo-Medrol and 3 cc 1% lidocaine were injected into the left knee without difficulty. The right knee was prepped draped usual fashion. Under anesthesia she continues to have a 10 degree flexion contracture and no laxity laterally mild laxity medially in full extension. She had a 17 degree anatomic axis valgus deformity preoperatively and we were prepared to use semi constrained implants with the [employer] system if necessary. Limb was exsanguinated and tourniquet elevated to 275 mmHg. She received 2 g of Ancef weight based vancomycin 1 g of tranexamic acid preoperatively as well as 10 mg of Decadron ID be because of her history of nausea with narcotics. A 7 in longitudinal midline incision was used and a vastus medialis splitting approach utilized splitting the vastus medialis at the level of the superior pole of patella. Infrapatellar and suprapatellar fat pads were excised. She had intense synovitis in the knee. The quadriceps synovectomy was carried out. The patella was arthritic. Osteophytes were removed. Thickness was 20 mm. The patella was cut to 14 mm. Bone quality seemed excellent. A protector cap was applied. A guide oren was inserted into the femoral canal after aspiration of canal contents and using the 5 degree valgus cutting bushing, 11 mm of bone removed off of the medial femoral condyle this removed about 3 or 4 from the lateral femoral condyle. Next the tibial plateau was cut. Our initial cut left a little cartilage on the back of the tibia medially and did not reach the defect bottom in the lateral tibial plateau posteriorly. Additional 3 mm of bone removed and this gave us a proper cut surface and again the bone quality was excellent. We confirmed that the cut was perpendicular to the axis of the tibia in both planes. Meniscal remnants were excised. The PCL was recessed. Provisional posterior capsule release was performed centrally. The distal femoral guide was set at 7? of external rotation which matched Whitesides line. The 62.5 was going to notch. We applied the 65 cutting block and the anterior cut was made so we could see how much flexion we needed to put on the distal femur and we put about 3? of flexion on the distal femur and with this the 62.5 cutting block gave a flush cut with the anterior cortex without notching. Posterior and chamfer cuts were made. The 62.5 fit line to line medial to lateral. Flexion gap had appropriate fill with the 10 mm 5 and 1 insert trial. We lacked about 35? of extension over. An additional 2 mm of bone removed from the distal femur. Chamfer cuts revisited. Posterior femoral osteophyte was removed laterally and posterior capsular release was carefully performed from the distal femur. The we trialed and the knee was still far too tight laterally. The iliotibial band was pie crusted and as such completely released in the posterolateral capsule released from the posterolateral margin of the tibial plateau. The lateral collateral ligament and the popliteus tendon were carefully preserved. We trialed again we still lacked about 12? of extension. An additional 2 mm of bone removed the distal femur. Chamfer cuts revisited. The tibia was sized to a 67 vanguard placed at proper rotation referenced to the medial 1/3 of the tibial tubercle in the anterior cortex and this fit centrally line to line posterolaterally to anteromedially. We trialed again with a 5 and 1 insert and we lacked about 3? to 4? of extension. We now had about 6 mm of medial opening to valgus stress in this position and laterally no p
[2022-10-29] MEDS: ONDANSETRON INJ 4 MG/2 ML VIAL IV PUSH (19:38)
[2022-10-29] MEDS: diphenhydrAMINE HCl INJ 50 MG/ML VIAL 12.5 MG IV PUSH (19:58)
--- NOTE | 2022-10-29 21:06 | ADMGEN ---
This patient, Jinny Berrios, was admitted to Medical Room 341-01. Patient/family oriented to hospital policies and general routines including ID bracelet, bed and alarms, visiting hours, pain management, procedures, bathroom and other care routines, personal items, smoking policy, room service/diet, and visiting hours. Information on how to activate the Rapid Response Team has been discussed. Patient/Family are encouraged to report perceived risks to care and to ask questions if they do not understand what they are told or what they should do.
[2022-10-29] MEDS: ceFAZolin 1 GM/NS 50 ML 1 GM/50 ML BAG IVPB (21:19)
[2022-10-29] MEDS: KCL 20 MEQ/D5/0.9% SOD CHL 1,000 ML 125 ML IV CONT (21:19)
[2022-10-29] MEDS: traMADol HCL (*CRX) 50 MG TABLET PO (22:34)
[2022-10-29] MEDS: KETOROLAC 15 MG/ML VIAL (*BKC) IV PUSH (22:35)
[2022-10-29] MEDS: POTASSIUM CHLORIDE 10 MEQ ER TABLET PO (23:29)
[2022-10-29] MEDS: VANCOMYCIN 1,000 MG/NS 250 ML 1,000 MG/250 ML BAG 250 MG IVPB (23:30)
[2022-10-30 00:40] VITALS: BP 125/70; PULSE 78; RESP 18; TEMP 36.2; O2SAT 94
[2022-10-30] MEDS: MAGNESIUM SULF 2 GM/WATER 50ML 2 GM/50 ML BAG IVPB (01:00)
[2022-10-30] MEDS: traMADol HCL (*CRX) 50 MG TABLET PO ×5 (01:25→13:11)
[2022-10-30 03:59] VITALS: BP 114/61; PULSE 77; RESP 18; TEMP 36.5; O2SAT 96
[2022-10-30] MEDS: ceFAZolin 1 GM/NS 50 ML 1 GM/50 ML BAG IVPB ×2 (05:18→14:04)
[2022-10-30] MEDS: ACETAMINOPHEN 500 MG TABLET 1000 MG PO ×2 (05:18→11:56)
[2022-10-30 05:53] LABS: Basophils Percent Auto 0.2 % (0.2-1.2); Hematocrit 34.5 % (37.0-47.0); Immature Granulocyte Absolute 0.07 K/mm3 (0.00-0.031); Immature Granulocyte Percent A 0.6 % (0-0.5); Lymphocytes Absolute Auto 1.14 K/mm3 (0.9-3.2); Mean Corpuscular HGB Conc 31.9 g/dl (32-36); Mean Corpuscular Hemoglobin 31.6 pg (26-34); Mean Corpuscular Volume 99.1 fl (80-100); Mean Platelet Volume 11.5 fl (7.4-10.4); Monocytes Absolute Auto 0.2 K/mm3 (0.1-0.6); Monocytes Percent Auto 1.5 % (2.6-8.5); Neutrophils Absolute Auto 10.1 K/mm3 (1.3-6.7); Neutrophils Percent Auto 87.7 % (45.5-73.1); Platelet Count Result 216 k/mm3 (150-375); Red Blood Count 3.48 M/mm3 (4.2-5.4); White Blood Count 11.5 K/mm3 (4.5-10.0)
[2022-10-30 06:04] LABS: Anion Gap 8 mmol/L (8-16); Blood Urea Nitrogen 20 mg/dL (7-17); Calcium 8.4 mg/dL (8.4-10.2); Carbon Dioxide 25 mmol/L (22-30); Chloride 99 mmol/L (98-107); Estimated CRCL calculation 51 ml/min; Estimated Glomerular Filt Rate 49; Glucose 184 mg/dL (65-110); Potassium 3.5 mmol/L (3.4-5.0); Sodium 132 mmol/L (137-145)
[2022-10-30 06:31] LABS: Magnesium 2.1 mg/dL (1.6-2.3)
[2022-10-30] MEDS: KCL 20 MEQ/D5/0.9% SOD CHL 1,000 ML 125 ML IV CONT (07:21)
--- NOTE | 2022-10-30 07:23 | PM.PNORT ---
Subjective Subjective Date/Time Seen: 10/30/22 07:23 Interval history: Postop day 1 patient is alert. She is afebrile vital signs are stable. Morning labs are noted. Dressing is dry and intact. She has mild ecchymosis around the knee. Minimal swelling. She was up to the restroom overnight. She did have some early nausea following general anesthesia but this has improved. Pain overall is very well controlled. The plan will be to have the patient work with therapy this morning and again this afternoon and once IV antibiotics have been completed if she continues to be doing well she will be discharged home. Objective Data Vital Signs Vital Signs: Vital Signs - 24 hr 10/29/22 19:05 10/29/22 19:20 10/29/22 19:35 Temperature 36.2 C L Pulse Rate 88 102 H 102 H Respiratory Rate 17 20 24 H Blood Pressure 115/52 L 139/73 134/92 H Pulse Oximetry 94 94 94 Oxygen Delivery Simple Face Mask Simple Face Mask Room Air Oxygen Flow Rate 8 8 10/29/22 19:50 10/29/22 20:05 10/29/22 20:20 Temperature Pulse Rate 100 89 85 Respiratory Rate 20 20 16 Blood Pressure 138/69 132/65 Pulse Oximetry 97 96 97 Oxygen Delivery Room Air Room Air Nasal Cannula Oxygen Flow Rate 2 10/29/22 20:58 10/29/22 21:12 10/29/22 21:42 Temperature 36.2 C L 36.3 C L 36.4 C Pulse Rate 78 81 77 Respiratory Rate 16 16 18 Blood Pressure 138/66 132/60 126/71 Pulse Oximetry 100 97 95 Oxygen Delivery Oxygen Flow Rate 10/29/22 22:42 10/30/22 00:40 10/30/22 03:59 Temperature 36.6 C 36.2 C L 36.5 C Pulse Rate 83 78 77 Respiratory Rate 18 18 18 Blood Pressure 133/66 125/70 114/61 Pulse Oximetry 97 94 96 Oxygen Delivery Oxygen Flow Rate Intake/Output Intake/Output: Intake & Output 10/27/22 10/28/22 10/29/22 10/30/22 23:59 23:59 23:59 23:59 Intake Total 1725 1500 Balance 1725 1500 Meds/Results Medications: Active Medications Generic Name Dose Route Start Last Admin Trade Name Freq PRN Reason Stop Dose Admin Acetaminophen 1,000 mg 10/30/22 00:00 10/30/22 05:18 Acetaminophen 500 Mg Tablet PO 1,000 mg Q6HR [facility] Administration Apixaban 2.5 mg 10/30/22 09:00 Apixaban 2.5 Mg Tablet PO Q12HR [facility] Hydrochlorothiazide 12.5 mg 10/30/22 09:00 Hydrochlorothiazide 12.5 Mg Capsule PO QAM [facility] Cefazolin Sodium 1 gm in 50 mls @ 100 mls/hr 10/29/22 22:00 10/30/22 05:18 Ancef 1 Gm/Ns 50 Ml IVPB 10/30/22 14:29 100 mls/hr Q8H COLIN Administration Vancomycin HCl 1,000 mg in 250 mls @ 250 mls/hr 10/30/22 00:00 10/30/22 00:30 Vancomycin 1,000 Mg/Ns 250 Ml IVPB 10/30/22 12:59 Infused Q12H [facility] Infusion Potassium Chloride/Dextrose/Sod Cl 1,000 mls @ 125 mls/hr 10/29/22 20:34 10/30/22 07:21 Kcl 20 Meq/D5/0.9% Sod Chl IV CONT 125 mls/hr .Q8H [facility] Administration Irbesartan 150 mg 10/30/22 09:00 Irbesartan 150 Mg Tablet PO QAM [facility] Magnesium Oxide 200 mg 10/30/22 09:00 Magnesium Oxide 200 Mg Tablet PO DAILY [facility] Meloxicam 7.5 mg 10/30/22 08:00 Meloxicam 7.5 Mg Tablet PO DAILY@0800 [facility] Morphine Sulfate 2 mg 10/29/22 20:34 Morphine Sulfate (*Crx) 2 Mg/Ml Inj IV PUSH Q1H PRN Pain Rated 7-10 Naloxone HCl 0.1 mg 10/29/22 20:34 Naloxone Hcl 0.4 Mg/Ml Vial IV PUSH Q2M PRN Opiate Reversal Nebivolol 20 mg 10/30/22 09:00 Nebivolol Hcl 5 Mg Tablet PO DAILY [facility] Non-Formulary Medication 2,500 mcg 10/30/22 09:00 Biotin PO 11/29/22 08:59 DAILY [facility] Ondansetron HCl 4 mg 10/29/22 20:34 Ondansetron Inj 4 Mg/2 Ml Vial IV PUSH Q4H PRN Nausea And Vomiting Pantoprazole Sodium 40 mg 10/30/22 09:00 Pantoprazole 40 Mg Tablet PO 11/29/22 08:59 DAILY [facility] Polyethylene Glycol 17 gm 10/30/22 09:00 Polyethylene Glycol 3350 17 Gm Powd.Pack PO QAM [facility] Potassium Chloride 10 meq 10/29/22 22:50 10/29/22 23:29 Potassium Chloride 10 Meq Er Tablet PO 10 meq QID
--- NOTE | 2022-10-30 07:28 | PM.DS ---
DS: Admitting Diagnosis Discharge Date 10/30 Admitting Diagnosis Right knee DJD DS: Discharge Diagnosis Discharge Diagnosis (1) Osteoarthritis, knee: Qualifiers: Osteoarthritis type: primary Laterality: bilateral Qualified Code(s): M17.0 - Bilateral primary osteoarthritis of knee Code(s): M17.9 - Osteoarthritis of knee, unspecified Status: Acute DS: Summary Hospital Course Hospital Course: 67-year-old female who underwent right total knee arthroplasty on 10/29. Underwent the procedure without complications. She did have some mild nausea following general anesthesia which quickly improved. Postoperatively she has been alert and comfortable. She is afebrile vital signs are stable. Neurovascularly she is intact. Her pain is controlled with scheduled Tylenol as well as tramadol. Patient has GI intolerance to stronger narcotics but the tramadol is working well for her. She is on Eliquis for DVT prophylaxis. She is on meloxicam 7.5 mg daily as well. Patient is weight-bearing as tolerated. She does have a history C diff and therefore we are not going to send her home on extended antibiotics. She did get her normal 24 hour IV dosing. Dressing is dry and intact. She also go home on Senokot and MiraLax for constipation. Patient was advised any questions or concerns she is to call the office otherwise we will see her at her appointments. Time Spent with Patient Time attestation: Total time spent providing and/or coordinating discharge services: DS: Data Data Completed and Pending Labs on day of discharge: Labs from last 24 hours 10/30/22 10/30/22 10/29/22 05:30 05:26 10:53 WBC 11.5 H RBC 3.48 L Hgb 11.0 L Hct 34.5 L MCV 99.1 MCH 31.6 MCHC 31.9 L RDW 13.0 Plt Count 216 MPV 11.5 H Immature Gran % (Auto) 0.6 H Neut % (Auto) 87.7 H Lymph % (Auto) 10.0 L [place] % (Auto) 1.5 L Eos % (Auto) 0.0 Baso % (Auto) 0.2 Lymph # (Auto) 1.14 [place] # (Auto) 0.2 Eos # (Auto) 0.0 Baso # (Auto) 0.0 Abs Immat Gran (auto) 0.07 H Absolute Neuts (auto) 10.1 H Absolute Nucleated RBC 0.0 Nucleated RBC % 0.0 Sodium 132 L Potassium 3.5 2.9 L Chloride 99 Carbon Dioxide 25 Anion Gap 8 BUN 20 H Creatinine 1.10 H Estim Creat Clear Calc 51 Estimated GFR 49 L Glucose 184 H Calcium 8.4 Magnesium 2.1 1.4 L Blood Type O Positive Antibody Screen Negative Discharge Plan Discharge Patient Disposition: Home, Self-Care Discharge Instructions: SANCHEZ APPLE M.D [facility], [place] [id number] [place] [address] POST-OPERATIVE DISCHARGE INSTRUCTIONS TOTAL KNEE ARTHROPLASTY 1. When resting, lie on back with leg elevated above heart to minimize swelling. Significant swelling could indicate a blood clot and if this occurs call the office (or go to the ER) to have a venous ultrasound. 2. Do exercise 5 times a day. 3. Do not sit with leg down except for meals. 4. Wound Care: Nursing will give additional dressings at discharge. Patient to change dressing at home 1 week from surgery, then maintain until seen in office. 5. May shower with dressing in place. 6. Follow weight bearing status instructions. IMPORTANT: Remember not to sit in the chair for more than 30 minutes at a time. As a rule, during the first 14 days after surgery, only sit in the chair to work on the chair knee bending stretch exercise, for meals or for use of the restroom. Sitting in the chair promotes significant swelling in the knee and leg which will make the knee stiff and more painful and which simulates having a blood clot in the veins of the leg. If this type of significant diffuse swelling occurs, an ultrasound at the hospital will be necessary to rule out a blood clot. Be up walking around with the walker for a few minutes every hour while awake and then rest la
[2022-10-30] MEDS: polyethylene glycoL 3350 17 GM POWD.PACK PO (08:14)
[2022-10-30 08:15] VITALS: PULSE 75
[2022-10-30] MEDS: APIXABAN 2.5 MG TABLET PO (08:15)
[2022-10-30] MEDS: POTASSIUM CHLORIDE 10 MEQ ER TABLET PO ×2 (08:15→13:11)
[2022-10-30] MEDS: IRBESARTAN 150 MG TABLET PO (08:15)
[2022-10-30] MEDS: NEBIVOLOL HCL 5 MG TABLET 20 MG PO (08:15)
[2022-10-30] MEDS: PANTOPRAZOLE 40 MG TABLET PO (08:16)
[2022-10-30] MEDS: SENNA/DOCUSATE SODIUM TABLET 2 TAB PO (08:16)
[2022-10-30] MEDS: MELOXICAM 7.5 MG TABLET PO (08:16)
[2022-10-30] MEDS: MAGNESIUM OXIDE 200 MG TABLET PO (08:16)
[2022-10-30] MEDS: hydroCHLOROthiazide 12.5 MG CAPSULE PO (08:16)
[2022-10-30 09:00] VITALS: O2SAT 94
[2022-10-30 11:26] VITALS: BP 116/55; PULSE 76; RESP 16; TEMP 36.2; O2SAT 93
[2022-10-30] MEDS: VANCOMYCIN 1,000 MG/NS 250 ML 1,000 MG/250 ML BAG 250 MG IVPB (11:56)
[2022-10-30 14:00] VITALS: BP 104/56; PULSE 87; RESP 16; TEMP 36.6; O2SAT 96
== END 2022-10-30 15:12 | disposition home or self-care (01) ==
LOC: ANHSURGERY 09:54 → ANH3MED 20:39
PROVIDERS: PCP Family Medicine; Visit Provider Orthopaedic Surgery
PROC: (CPT 27447; principal; 2022-10-29 12:00)
PROC: (CPT 20610; 2022-10-29 12:00)
DX: M17.0 Bilateral primary osteoarthritis of knee (principal); Z79.01 Long term (current) use of anticoagulants; Z79.891 Long term (current) use of opiate analgesic; Z87.891 Personal history of nicotine dependence; E66.9 Obesity, unspecified; Z68.32 Body mass index [BMI] 32.0-32.9, adult
CPT/HCPCS: 20610; 27447; 36415; 73560; 80048; 83735; 84132; 85025; 86850; 86900; 86901; 97110; 97116; 97162; 97165; 97530; A9270; C1713; C1776; J0171; J0690; J1030; J1040; J1100; J1170; J1200; J1885; J2250; J2270; J2405; J2704; J2795; J3010; J3301; J3370; J3475; J3480; J7120

== ENCOUNTER 2022-11-14 17:53 | Inpatient (IN) | payer MEDICARE, SELFPAY ==
[2022-11-14] VITALS (11 sets, daily range): BP systolic 112–149; BP diastolic 56–75; PULSE 74–93; RESP 10–20; TEMP 36.1–37.3; O2SAT 93–100; BMI 30.9
--- NOTE | 2022-11-14 14:14 | PM.IMHP ---
H&P: HPI History of Present Illness Date/Time: 11/14/22 14:14 Chief Complaint: Draining incision status post right total knee arthroplasty. Narrative: 67-year-old female who underwent right total knee arthroplasty on 10/29. She had uneventful hospital stay and was having an uneventful recovery. She started developing some drainage from her incision last weekend. She was seen in the office this past Thursday. She had a large seroma in the knee that decompressed in the office. She also has some early skin edge necrosis of the incision in an area of about 5 or 6 mm in length. She was started on doxycycline 100 mg b.i.d.. She was seen again in the office today on 11/14. The incision was continuing to drain. The edge necrosis was still evident. Patient is not having any severe pain in the knee and is actually doing fairly well with her range of motion with regard to her recovery from total knee arthroplasty. The drainage that she was having in the office was rather a significant amount. It was serosanguineous drainage. Aspiration was done of the knee intra-articular as well as superficial and this fluid was sent off for cultures. Dr. Avendaño felt that the safest approach is to take her to the operating room today and do a debridement as well as poly exchange of the knee replacement and wound closure. Review of Systems Review of Systems: All systems reviewed & are unremarkable except as noted in HPI and below PMFSH Past Medical History Medical History Bilateral tinnitus BMI 29.0-29.9,adult BMI 30.0-30.9,adult BMI greater than 30 Diarrhea Excessive cerumen in right ear canal Hearing loss Lumbar stenosis Osteoarthritis, knee Synovial cyst of lumbar spine Family History Family History Father Lung cancer Mother Liver cancer Sibling Hypertension Social History Social History Smoking packs per day: 1.5 Smoking cigarettes per day: 30.0 Years smoked: 16 Smoking pack-years: 24.00 Smoking status: Former smoker Tobacco type: cigarettes Second hand tobacco smoke exposure: No Smoking end date: 03/23/95 Additional smoking assessment comments: DENIES ANY FORM OF TOBACCO USE Alcohol intake: current Drinks per week: 6 Substance use: never Substance use type: does not use Lack of Transportation: No Lack of Food: Never True Current Housing: I Have Housing Concerned About Future Housing: No Difficulty Paying Gas/Electric Bills: No Difficulty Paying for Meds: No Currently Unemployed: No Education: Don't Know Difficulty w/ Childcare or Family Care: No Living arrangements: alone Occupation/Education: occupation 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 Gender identity (if verbalized by the patient): Female Sexual Orientation (if Verbalized by the Patient): Straight or Heterosexual Spiritual care concerns: No Meds Home Medications and Allergies Home Medications Medication Instructions Recorded Confirmed Type magnesium 200 mg tablet 200 mg PO DAILY #30 tabs 01/14/22 10/06/22 Rx omeprazole 20 mg tablet,delayed 20 mg PO DAILY #90 tabs 03/17/22 10/06/22 Rx release nebivolol 20 mg tablet (Bystolic) 20 mg PO DAILY #90 tabs 06/25/22 10/29/22 Rx furosemide 20 mg tablet 20 mg PO DAILY #90 tabs 08/22/22 10/06/22 Rx hydrochlorothiazide 12.5 mg capsule 12.5 mg PO DAILY #90 caps 08/22/22 10/06/22 Rx biotin 2,500 mcg capsule 2,500 mcg PO DAILY 10/06/22 10/06/22 History acetaminophen 500 mg tablet 1,000 mg PO Q6HR #90 tabs 10/30/22 Rx apixaban 2.5 mg tablet (Eliquis) 2.5 mg PO Q12HR #28 tabs 10/30/22 Rx polyethylene glycol 3350 17 gram 17 g PO QAM #30 ea 10/30/22 Rx oral powder packet (Miralax) sennosides 8.6 mg-docusate sodium 2 tab-cap PO Q12HR #60 tabs
--- NOTE | 2022-11-14 14:47 | WPDANESEPPF ---
Anes - Initial Pre Proc Eval Procedure: Operation Date: 11/14/22 16:30 Proposed Procedures p Irrigation and Debridement Right Knee, Possible Poly Exchange - Aj Avendaño MD Date/Time: 11/14/22 14:47 Surgeon: Aj Avendaño MD Pre Op Diagnosis: draining wound right total knee Patient Data Age: 67 Gender: F Height: Weight: Allergies Allergy/AdvReac Type Severity Reaction Status Date / Time hydrocodone Allergy Unknown NAUSEA AND Verified 10/29/22 12:06 VOMITING penicillin G Allergy Unknown A Verified 10/29/22 12:06 CHILD-UNKNOWN REACTION Sulfa (Sulfonamide Allergy Unknown A Verified 10/29/22 12:06 Antibiotics) CHILD-UNKNOWN REACTION Home Medications Medication Instructions Recorded Confirmed Type magnesium 200 mg tablet 200 mg PO DAILY #30 tabs 01/14/22 10/06/22 Rx omeprazole 20 mg tablet,delayed 20 mg PO DAILY #90 tabs 03/17/22 10/06/22 Rx release nebivolol 20 mg tablet (Bystolic) 20 mg PO DAILY #90 tabs 06/25/22 10/29/22 Rx furosemide 20 mg tablet 20 mg PO DAILY #90 tabs 08/22/22 10/06/22 Rx hydrochlorothiazide 12.5 mg capsule 12.5 mg PO DAILY #90 caps 08/22/22 10/06/22 Rx biotin 2,500 mcg capsule 2,500 mcg PO DAILY 10/06/22 10/06/22 History acetaminophen 500 mg tablet 1,000 mg PO Q6HR #90 tabs 10/30/22 Rx apixaban 2.5 mg tablet (Eliquis) 2.5 mg PO Q12HR #28 tabs 10/30/22 Rx polyethylene glycol 3350 17 gram 17 g PO QAM #30 ea 10/30/22 Rx oral powder packet (Miralax) sennosides 8.6 mg-docusate sodium 2 tab-cap PO Q12HR #60 tabs 10/30/22 Rx 50 mg tablet (Senokot-S) potassium chloride 10 mEq 10 meq PO QID #120 caps 11/02/22 Rx capsule,extended release ibuprofen 800 mg tablet 800 mg PO TID PRN pain #120 tabs 11/04/22 Rx tramadol 50 mg tablet 50 mg PO Q6H PRN pain #120 tabs 11/04/22 Rx irbesartan 150 See Rx Instructions .Route 11/10/22 Rx mg-hydrochlorothiazide 12.5 mg .COMPLEX #90 tabs tablet vancomycin 125 mg capsule 125 mg PO TID 10 days #30 caps 11/13/22 Rx Patient hx anesthesia problems: post op nausea/vomiting Family hx anesthesia problems: none Results Review: All pre-operative results and documents have been reviewed as part of the pre-operative evaluation. [facility] Past Medical History Medical History (Updated 11/14/22 @ 14:54 by Edison Hill DO) Bilateral tinnitus BMI 29.0-29.9,adult BMI 30.0-30.9,adult BMI greater than 30 Chronic, continuous use of opioids Diarrhea Essential (primary) hypertension Excessive cerumen in right ear canal Gastroesophageal reflux disease Hearing loss Lumbar stenosis Osteoarthritis, knee Synovial cyst of lumbar spine Family History Family History Father Lung cancer Mother Liver cancer Sibling Hypertension Social History Social History Smoking packs per day: 1.5 Smoking cigarettes per day: 30.0 Years smoked: 16 Smoking pack-years: 24.00 Smoking status: Former smoker Tobacco type: cigarettes Second hand tobacco smoke exposure: No Smoking end date: 03/23/95 Additional smoking assessment comments: DENIES ANY FORM OF TOBACCO USE Alcohol intake: current Drinks per week: 6 Substance use: never Substance use type: does not use Lack of Transportation: No Lack of Food: Never True Current Housing: I Have Housing Concerned About Future Housing: No Difficulty Paying Gas/Electric Bills: No Difficulty Paying for Meds: No Currently Unemployed: No Education: Don't Know Difficulty w/ Childcare or Family Care: No Living arrangements: alone Occupation/Education: occupation 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
[2022-11-14] MEDS: LACTATED RINGERS 1,000 ML 30 ML IV CONT (14:50)
[2022-11-14 15:00] LABS: Basophils Absolute Auto 0.1 K/mm3 (0.0-0.1); Basophils Percent Auto 1.2 % (0.2-1.2); Eosinophils Absolute Auto 0.2 K/mm3 (0-0.3); Eosinophils Percent Auto 2.6 % (0-4.4); Hematocrit 38.3 % (37.0-47.0); Hemoglobin 12.3 g/dL (12.0-15.0); Immature Granulocyte Absolute 0.02 K/mm3 (0.00-0.031); Immature Granulocyte Percent A 0.2 % (0-0.5); Lymphocytes Absolute Auto 2.47 K/mm3 (0.9-3.2); Lymphocytes Percent Auto 30.2 % (18.3-44.2); Mean Corpuscular HGB Conc 32.1 g/dl (32-36); Mean Corpuscular Hemoglobin 31.2 pg (26-34); Mean Corpuscular Volume 97.2 fl (80-100); Mean Platelet Volume 10.8 fl (7.4-10.4); Monocytes Absolute Auto 0.6 K/mm3 (0.1-0.6); Monocytes Percent Auto 7.5 % (2.6-8.5); Neutrophils Absolute Auto 4.8 K/mm3 (1.3-6.7); Neutrophils Percent Auto 58.3 % (45.5-73.1); Platelet Count Result 379 k/mm3 (150-375); Red Blood Count 3.94 M/mm3 (4.2-5.4); Red Cell Distribution Width 13.4 % (11.5-14.5); White Blood Count 8.2 K/mm3 (4.5-10.0)
--- NOTE | 2022-11-14 15:05 | WPDHPUPDATE1 ---
History and Physical Update Update Date/Time: 11/14/22 15:05 History and Physical has been reviewed, including an updated exam of the patient. There are NO changes in the patient's condition. Risks, benefits, and alternatives have been discussed and questions answered. Patient agrees to proceed with procedure.
[2022-11-14 15:15] LABS: Alanine Aminotransferase 23 U/L (6-35); Albumin Level 4.6 g/dL (3.5-5.1); Alkaline Phosphatase 98 U/L (38-126); Anion Gap 4 mmol/L (8-16); Aspartate Amino Transferase 31 U/L (14-36); Bilirubin,Total 0.9 mg/dL (0.2-1.3); Blood Urea Nitrogen 19 mg/dL (7-17); Calcium 9.4 mg/dL (8.4-10.2); Carbon Dioxide 33 mmol/L (22-30); Chloride 95 mmol/L (98-107); Estimated CRCL calculation 45 ml/min; Estimated Glomerular Filt Rate 45; Glucose 110 mg/dL (65-110); Potassium 3.2 mmol/L (3.4-5.0); Sodium 132 mmol/L (137-145)
[2022-11-14 15:17] LABS: CRP 0.9 mg/dL (<1.0)
[2022-11-14] MEDS: SCOPOLAMINE 1.5 MG PATCH TRANSDERM (15:18)
--- NOTE | 2022-11-14 15:18 | WPDHPUPDATE1 ---
History and Physical Update Update Date/Time: 11/14/22 15:18 Also, we have just learnedpatient did not stop eliquis on as discussed.
--- NOTE | 2022-11-14 15:28 | SUR.PREOP ---
1445-dressing to right knee-not removed for shave/scrub-scrub sent to OR with pt. 1510-Dr. Avendaño aware pt not sure when she took her last dose of Eliquis-that pt thinks she may have taken it this morning but if not, then last dose was 2100 11/13/22.
[2022-11-14 15:35] LABS: Erythrocyte Sedimentation Rate 26 mm/hr (0-20)
[2022-11-14] MEDS: VANCOMYCIN 1,250 MG/NS 250 ML 1,250 MG/250 ML BAG 166.67 MG IVPB (16:01)
[2022-11-14] MEDS: cefTRIAXone 2 GM/NS 100 ML 2 GM/100 ML BAG IVPB (16:01)
[2022-11-14 16:07] LABS: Appearance Synovial Fluid Bloody (Clear); Color Synovial Fluid Red (Colorless); Source Synovial Fluid Synovial fluid
[2022-11-14 16:08] LABS: Lymphocytes Synovial Fluid 9 %; Monocytes Synovial Fluid 1 %; Neutrophils Synovial Fluid 90 % (0-25); Nucleated Cell Synovial Fluid 2379 /uL (0-200); RBC Synovial Fluid 161000 /uL (0-0)
--- NOTE | 2022-11-14 16:58 | PM.OP ---
Procedure Note - Brief Procedure Note - Brief Date of procedure: 11/14/22 draining wound right total knee Procedure performed: Irrigation and debridement right total knee Surgeon: CAITLYN Green Findings: 67 year old female who underwent irrigation and debridement of her right total knee arthroplasty which was originally done on 10/29. I was involved procedure including positioning patient on the OR table and 1st assisting to time surgery. Total time spent was 2 hours.
[2022-11-14 17:17] LABS: Appearance Synovial Fluid Bloody (Clear); Color Synovial Fluid Red (Colorless); Source Synovial Fluid Synovial fluid
[2022-11-14 17:18] LABS: Lymphocytes Synovial Fluid 2 %; Monocytes Synovial Fluid 1 %; Neutrophils Synovial Fluid 97 % (0-25); Nucleated Cell Synovial Fluid 3516 /uL (0-200); RBC Synovial Fluid 90000 /uL (0-0)
--- NOTE | 2022-11-14 17:44 | W.PM.PROC2 ---
Procedure Note - Detailed Date of Procedure 11/14/22 Pre-op Diagnosis draining wound right total knee Post-op Diagnosis Same Procedure Performed Opening of the previous incision anterior right knee irrigation and debridement of superficial wound space superficial to extensor mechanism skin edge debridement and closure Surgeon Aj Avendaño MD Remote Sensing Surveyor kj Anesthesia General Description of Procedure Patient was brought to the operating room and general anesthesia was administered. The anterior midline incision for the right knee from the knee replacement which she had had 16 days ago had active serous drainage from the incision in an area about 2 cm in length. The edges were approximated but could be seen to gap about a mm there and the lateral skin edge there had some grayish exudate the skin edge there likely representing maceration. Rest the incision was well sealed. There was an area about 2 cm in length adjacent to this area where the drainage was where the skin edge showed what appeared to be superficial necrosis on the lateral skin edge flap with measuring between 4 and 6 mm. Medial skin edge looked normal. We prepped the leg with Betadine scrub and then Betadine paint wrapped the knee with IO band the sponge over the incision the sponge the Ioban was removed from over the incision. Metzenbaum scissors used to cut the sutures to fully open the full length of the incision. There was a lot of edema that was weeping and a fair amount of bloody oozing from the skin edges and surface of the extensor mechanism with very minimal amount of granulation tissue on the anterior patella and distal quadriceps. There is no necrotic debris to remove in the wound. The wound was thoroughly irrigated with antibiotic solution and we had used Ancef and vancomycin in the 3 L bag and for additional g negative coverage we used 200 mg of gentamicin and a 1 L bag all used pulsatile lavage. With the wound dried I flexed the knee up to 120? and I saw no fluid leaking from the are inside the joint into the superficial wound. Fortunately the lateral retinacular release did not communicate with the superficial. Wound. I could feel that there was a small effusion and we re-prepped the skin laterally with Betadine paint and with the 18 gauge needle from a lateral parapatellar approach from outside the incision we aspirated about 50 cc of serosanguineous fluid. We sent this off for cultures and additionally when we had opened up the incision I used a swab rubbing over the extensor mechanism and we sent that off for superficial wound culture. With the C-reactive protein today at 0.9 normal is less than 1, this argues against a deep infection as usually if there is deep infection the CRP is more than 10 times the normal range in the 1st 3 weeks after surgery. The sedimentation rate was minimally elevated at 26 also encouraging. For these reasons I did not elect to open the arthrotomy and do a polyethylene exchange unless we have compelling reason to do so particularly while she is on the Eliquis and oozing blood from the surfaces more than average. We removed the subcutaneous Vicryl and Monocryl carefully and assess the skin edges. I elected to remove approximately 3-4 mm of lateral skin in the area of the skin edge necrosis superficially and this brought us down to some very healthy bleeding tissue. This was done an a tapered ellipsed fashion with a new 10 blade and was successful and the skin edges approximated well. We closed the skin with interrupted 3-0 PDS but leaving the central 1/3 of the incision without subcutaneous stitches with the skin was thinner and used 4-0 nylon Rutti algower closure in that central area time being the knots over the medial skin flap which seemed to have better circulation and a nice approximation was achieved. Proximal and distal that we closed the skin with vertical mattress 4-0 nylons. Was oozing at the skin edges with the deep wound was dry
--- NOTE | 2022-11-14 17:46 | SUR.PHASEI ---
Vanc finished 1739.
--- NOTE | 2022-11-14 18:26 | WPDCN ---
Assessment and Plan Assessment and plan (1) Drainage from surgical wound: Status: Acute Assessment and Plan: The patient developed serosanguineous drainage out of her incision last weekend and she was started on doxycycline for a small area of necrotic tissue. She had a follow-up appointment today with significant amount of drainage and she was taken to the OR for irrigation debridement per Dr. Avendaño. Continue IV vancomycin and ceftriaxone, pending cultures. (2) Status post right knee replacement: Code(s): Z96.651 - Presence of right artificial knee joint Status: Acute Assessment and Plan: Status post right total knee arthroplasty on 10/29/2022. (3) Electrolyte abnormality: Code(s): E87.8 - Other disorders of electrolyte and fluid balance, not elsewhere classified Status: Acute Assessment and Plan: Mild electrolyte abnormalities including a sodium 132, potassium 3.2, chloride 95. 1 L normal saline overnight, repeat in a.m.. (4) Chronic kidney disease, stage 3: Code(s): N18.30 - Chronic kidney disease, stage 3 unspecified Status: Acute Assessment and Plan: Creatinine appears stable on review of previous labs. (5) Essential (primary) hypertension: Code(s): I10 - Essential (primary) hypertension Status: Acute Assessment and Plan: Blood pressures were reviewed and they have been stable. Continue antihypertensives aside from thiazide diuretic due to electrolyte abnormalities and monitor closely. (6) Gastroesophageal reflux disease: Code(s): K21.9 - Gastro-esophageal reflux disease without esophagitis Status: Acute Assessment and Plan: No acute issues. Continue omeprazole. Plan Thank you for allowing us to participate in this patient's care. Please do not hesitate to contact us with any questions. HPI Data of Consult Date/Time: 11/14/22 18:45 Requesting Physician: Aj Avendaño MD Consult Narrative Reason for consult: Postoperative medical management. Narrative: This is a 67-year-old female with degenerative joint disease, hypertension, Clostridium difficile infection, gastroesophageal reflux disease whom the hospitalist service has been consulted for help managing her medical conditions postoperatively. She underwent right total knee arthroplasty on 10/29/2022 and had a relatively uneventful postoperative course until last weekend when she developed drainage from the incision. She was seen in Dr. Avendaño's office last Thursday and had a large seroma in the knee which was decompressed. A small area of skin edge necrosis was noted at that time and she was started on doxycycline. Today she had a follow-up appointment and was noted to have a rather significant amount of serosanguineous drainage. Aspiration was performed and fluid was sent for cultures. Dr. Avendaño felt that the safest approach would be to take her back to the OR today. She is now status post irrigation and debridement. There were no immediate complications documented and blood loss was estimated to be 20 mL. Postoperatively she reports nausea and vomiting which is not unusual for her following anesthesia. She is not having much in the way of discomfort at the operative site. She denies fever, chills, sweats, chest pain, or shortness a breath. Review of Systems Review of Systems: Twelve systems were reviewed. She has history of Clostridium difficile diarrhea in 2019 with recurrent episodes and now she takes p.o. vancomycin every time she is prescribed antibiotics. She has not had any recent diarrhea. Except as documented, all other systems were reviewed and are negative. [facility] Past Medical History Medical History (Updated 11/14/22 @ 18:42 by Stephany Lombardi PA-C) Chronic kidney disease, stage 3 Chronic, continuous use of opioids Clostridium difficile infection (2019) Degenerative joint disease Essential (primary) hypertension
[2022-11-14] MEDS: SODIUM CHLORIDE 0.9% IV 1,000 ML 125 ML IV CONT (18:42)
[2022-11-14] MEDS: ACETAMINOPHEN 500 MG TABLET 1000 MG PO (18:42)
--- NOTE | 2022-11-14 19:05 | PC.NURSE ---
Pt arrived to the unit from PACU. Pt denies any pain upon arrival. Pt on 2L O2 due to O2 dropping when sleeping. Pt feeling nauseous upon arrival. Pt threw up when taking tylenol . IV fluids started, pt tolerated well. IV vanc and oral vanc given. Pt instantly threw up PO vanc. Provider notified, new orders to be put in. mine car dispatcher RN made aware.
[2022-11-14] MEDS: VANCOMYCIN ORAL 125 MG/2.5 ML SYRUP PO (19:25)
[2022-11-14] MEDS: VANCOMYCIN 1,000 MG/NS 250 ML 1,000 MG/250 ML BAG 250 MG IVPB (19:25)
[2022-11-14] MEDS: ONDANSETRON INJ 4 MG/2 ML VIAL IV PUSH (20:46)
[2022-11-14] MEDS: SENNA/DOCUSATE SODIUM TABLET 2 TAB PO (20:46)
[2022-11-14] MEDS: POTASSIUM CHLORIDE 20 MEQ ER TABLET PO (23:51)
[2022-11-15] VITALS (8 sets, daily range): BP systolic 104–138; BP diastolic 47–66; PULSE 71–78; RESP 16–20; TEMP 36.2–37.3; O2SAT 96–100
[2022-11-15] MEDS: ACETAMINOPHEN 500 MG TABLET 1000 MG PO ×3 (01:22→13:08)
[2022-11-15 05:33] LABS: Basophils Absolute Auto 0.1 K/mm3 (0.0-0.1); Basophils Percent Auto 0.8 % (0.2-1.2); Eosinophils Percent Auto 0.2 % (0-4.4); Hemoglobin 10.6 g/dL (12.0-15.0); Immature Granulocyte Absolute 0.03 K/mm3 (0.00-0.031); Immature Granulocyte Percent A 0.5 % (0-0.5); Lymphocytes Absolute Auto 1.28 K/mm3 (0.9-3.2); Lymphocytes Percent Auto 20.9 % (18.3-44.2); Mean Corpuscular HGB Conc 32.1 g/dl (32-36); Mean Corpuscular Hemoglobin 31.5 pg (26-34); Mean Corpuscular Volume 97.9 fl (80-100); Monocytes Absolute Auto 0.3 K/mm3 (0.1-0.6); Monocytes Percent Auto 4.6 % (2.6-8.5); Neutrophils Absolute Auto 4.5 K/mm3 (1.3-6.7); Platelet Count Result 252 k/mm3 (150-375); Red Blood Count 3.37 M/mm3 (4.2-5.4); Red Cell Distribution Width 13.1 % (11.5-14.5); White Blood Count 6.1 K/mm3 (4.5-10.0)
[2022-11-15 05:46] LABS: Anion Gap 5 mmol/L (8-16); Blood Urea Nitrogen 19 mg/dL (7-17); Carbon Dioxide 26 mmol/L (22-30); Chloride 100 mmol/L (98-107); Estimated CRCL calculation 54 ml/min; Estimated Glomerular Filt Rate 55; Glucose 115 mg/dL (65-110); Potassium 3.4 mmol/L (3.4-5.0); Sodium 131 mmol/L (137-145)
[2022-11-15] MEDS: FUROSEMIDE 20 MG TABLET PO (09:03)
[2022-11-15] MEDS: PANTOPRAZOLE 40 MG TABLET PO (09:03)
[2022-11-15] MEDS: MAGNESIUM OXIDE 200 MG TABLET PO (09:03)
[2022-11-15] MEDS: IRBESARTAN 150 MG TABLET PO (09:03)
[2022-11-15] MEDS: NEBIVOLOL HCL 5 MG TABLET 20 MG PO (09:04)
--- NOTE | 2022-11-15 09:31 | PM.IMPN ---
Progress Note: A&P Assessment and Plan (1) Drainage from surgical wound: Status: Acute Assessment and Plan: The patient developed serosanguineous drainage out of her incision last weekend and she was started on doxycycline for a small area of necrotic tissue. She had a follow-up appointment today with significant amount of drainage and she was taken to the OR for irrigation debridement per Dr. Avendaño. Continue IV vancomycin and ceftriaxone, pending cultures. (2) Status post right knee replacement: Code(s): Z96.651 - Presence of right artificial knee joint Status: Acute Assessment and Plan: Status post right total knee arthroplasty on 10/29/2022. Now POD 1 for wash out. (3) Electrolyte abnormality: Code(s): E87.8 - Other disorders of electrolyte and fluid balance, not elsewhere classified Status: Acute Assessment and Plan: Mild electrolyte abnormalities including a sodium 132, potassium 3.2, chloride 95. 1 L normal saline overnight, repeat in a.m.. (4) Chronic kidney disease, stage 3: Code(s): N18.30 - Chronic kidney disease, stage 3 unspecified Status: Acute Assessment and Plan: Creatinine appears stable on review of previous labs. (5) Essential (primary) hypertension: Code(s): I10 - Essential (primary) hypertension Status: Acute Assessment and Plan: Blood pressures were reviewed and they have been stable. Continue antihypertensives aside from thiazide diuretic due to electrolyte abnormalities and monitor closely. (6) Gastroesophageal reflux disease: Code(s): K21.9 - Gastro-esophageal reflux disease without esophagitis Status: Acute Assessment and Plan: No acute issues. Continue omeprazole. Plan Thank you for allowing us to participate in this patient's care. Please do not hesitate to contact us with any questions. Subjective Date/time seen: 11/15/22 09:31 Interval history: This is 67-year-old female who underwent right total knee arthroplasty on 10/29.? She had uneventful hospital stay and was having an uneventful recovery.? She started developing some drainage from her incision last weekend.? She was seen in the office this past Thursday.? She had a large seroma in the knee that decompressed in the office.? She also has some early skin edge necrosis of the incision in an area of about 5 or 6 mm in length.? She was started on doxycycline 100 mg b.i.d..? She was seen again in the office today on 11/14.? The incision was continuing to drain.? The edge necrosis was still evident.? Patient is not having any severe pain in the knee and is actually doing fairly well with her range of motion with regard to her recovery from total knee arthroplasty.? The drainage that she was having in the office was rather a significant amount.? It was serosanguineous drainage.? Aspiration was done of the knee intra-articular as well as superficial and this fluid was sent off for cultures.? Dr. Avendaño felt that the safest approach is to take her to the operating room today and do a debridement as well as poly exchange of the knee replacement and wound closure. 11/15: Postop day 1 for right knee debridement and poly exchange. Patient states she is feeling well, her pain is controlled. She has been up moving around in the room today without difficulty. She seems anxious to leave today. Awaiting Orthopedics to around to see if she will discharge today or tomorrow. She denies subjective complaints of fever. She is tolerating a diet and no issues with elimination. Review of Systems Review of Systems: All systems reviewed & are unremarkable except as noted in HPI and below Exam Narrative: General: well-nourished, well-appearing 67-year-old female, sitting up in bed, comfortable, NARD Neuro: awake, alert and oriented x4, speech clear, no focal neuro deficits noted HEENMT: normocephalic, atraumatic, EOMI, sclerae anicter
[2022-11-15] MEDS: VANCOMYCIN ORAL 125 MG/2.5 ML SYRUP PO ×3 (09:48→17:52)
--- NOTE | 2022-11-15 14:53 | PM.PNORT ---
Progress Note: A&P Assessment and Plan (1) Drainage from surgical wound: Status: Acute Assessment and Plan: Patient is day 1. After exploration right knee replacement wound for significant drainage and central skin edge necrosis. She has been in bed and had the leg elevated with SCDs in place. Her incision is completely dry today skin edges look much better. She does not have the [place] edema today that she had yesterday. I learned today that she is not following our advice to not rest in the chair. She has been working from home and puts her foot up on a stool but she is sitting up and I reviewed with her that that is not keeping her leg properly elevated to reduce edema. She has a recurrent fluid collection in the subcutaneous area suprapatellar. I recommended aspirating that today suspecting it to be some hematoma fluid and it was 16 cc of mostly sanguinous but slightly serous fluid. This was done after ChloraPrep prep using 18 gauge needle. Hopefully her Eliquis is wearing off. Tonight she will be 36 - 48 hours since her last dose of Eliquis. She was not certain whether she took yesterday morning. I am going to start her on she will baby aspirin therefore tonight and give this every 12 hours. She is moving her ankles and toes up and down frequently and is wearing the SCDs. Cultures are all pending. Continue vancomycin and ceftriaxone for now. Laboratory studies look good. Her hemoglobin is a little bit lower at 10.6 which I think is due to rehydration and her creatinine is 1.0 today down from 1.2 yesterday again due to rehydration. I have discussed with her that I do not want her to bend her knee more than about 45?. I do want to too much tension on the anterior incision. New dressing was applied and I will inspect wound again tomorrow. I expect are culture results should be available by Thursday. Subjective Subjective Date/Time Seen: 11/15/22 14:53 Objective Data Vital Signs Vital Signs: Vital Signs - 24 hr 11/14/22 16:52 11/14/22 17:00 11/14/22 17:15 Temperature 37.3 C Pulse Rate 83 93 88 Respiratory Rate 10 L 12 20 Blood Pressure 112/73 149/75 H 143/73 H Pulse Oximetry 99 93 95 Oxygen Delivery Simple Face Mask Room Air Room Air Oxygen Flow Rate 10 11/14/22 17:30 11/14/22 17:45 11/14/22 17:50 Temperature Pulse Rate 82 74 76 Respiratory Rate 14 18 13 Blood Pressure 146/64 H 139/67 137/63 Pulse Oximetry 94 97 98 Oxygen Delivery Room Air Nasal Cannula Nasal Cannula Oxygen Flow Rate 2 2 11/14/22 18:10 11/14/22 18:35 11/14/22 19:17 Temperature 37.0 C 37.0 C 36.1 C L Pulse Rate 81 79 80 Respiratory Rate 18 18 18 Blood Pressure 138/56 L 129/60 141/62 H Pulse Oximetry 97 97 99 Oxygen Delivery Oxygen Flow Rate 11/14/22 23:35 11/15/22 03:32 11/15/22 07:38 Temperature 36.4 C L 36.2 C L 36.9 C Pulse Rate 82 71 76 Respiratory Rate 18 18 16 Blood Pressure 120/61 127/57 L 138/66 Pulse Oximetry 99 100 98 Oxygen Delivery Oxygen Flow Rate 11/15/22 09:04 11/15/22 09:50 11/15/22 11:38 Temperature 36.9 C Pulse Rate 72 72 71 Respiratory Rate 16 16 Blood Pressure 104/47 L Pulse Oximetry 98 100 Oxygen Delivery Nasal Cannula Oxygen Flow Rate 2 Intake/Output Intake/Output: Intake & Output 11/12/22 11/13/22 11/14/22 11/15/22 23:59 23:59 23:59 23:59 Intake Total 200 680 Output Total 300 Balance 200 380 Meds/Results Medications: Active Medications Generic Name Dose Route Start Last Admin Trade Name Freq PRN Reason Stop Dose Admin Acetaminophen 1,000 mg 11/14/22 19:00 11/15/22 13:08 Acetaminophen 500 Mg Tablet PO 1,000 mg Q6H COLIN Administration Furosemide 20 mg 11/15/22 09:00 11/15/22 09:03 Furosemide 20 Mg Tablet PO 20 mg DAILY COLIN Administration Ceftriaxone Sodium 1 gm in 50 mls @ 100 mls/hr 11/15/22 15:00 Rocephin 1 Gm/Ns 50 Ml IVPB Q24H COLIN Vancomycin HCl 1,500 mg in 500 mls @
[2022-11-15] MEDS: ASPIRIN 81 MG CHEWABLE TABLET PO (17:52)
[2022-11-15] MEDS: traMADol HCL (*CRX) 50 MG TABLET PO (17:55)
[2022-11-16 04:41] VITALS: BP 138/63; PULSE 72; RESP 20; TEMP 36.7; O2SAT 100
[2022-11-16 05:30] LABS: Basophils Absolute Auto 0.1 K/mm3 (0.0-0.1); Basophils Percent Auto 1.4 % (0.2-1.2); Eosinophils Absolute Auto 0.1 K/mm3 (0-0.3); Eosinophils Percent Auto 1.7 % (0-4.4); Hematocrit 34.1 % (37.0-47.0); Hemoglobin 10.5 g/dL (12.0-15.0); Immature Granulocyte Absolute 0.03 K/mm3 (0.00-0.031); Immature Granulocyte Percent A 0.4 % (0-0.5); Lymphocytes Absolute Auto 2.62 K/mm3 (0.9-3.2); Mean Corpuscular HGB Conc 30.8 g/dl (32-36); Mean Corpuscular Hemoglobin 31.6 pg (26-34); Mean Corpuscular Volume 102.7 fl (80-100); Mean Platelet Volume 11.1 fl (7.4-10.4); Monocytes Absolute Auto 0.5 K/mm3 (0.1-0.6); Monocytes Percent Auto 6.6 % (2.6-8.5); Neutrophils Absolute Auto 3.8 K/mm3 (1.3-6.7); Neutrophils Percent Auto 52.9 % (45.5-73.1); Platelet Count Result 251 k/mm3 (150-375); Red Blood Count 3.32 M/mm3 (4.2-5.4); Red Cell Distribution Width 13.4 % (11.5-14.5); White Blood Count 7.1 K/mm3 (4.5-10.0)
[2022-11-16 05:42] LABS: Anion Gap 2 mmol/L (8-16); Blood Urea Nitrogen 20 mg/dL (7-17); Calcium 8.4 mg/dL (8.4-10.2); Carbon Dioxide 26 mmol/L (22-30); Chloride 107 mmol/L (98-107); Estimated CRCL calculation 49 ml/min; Estimated Glomerular Filt Rate 49; Glucose 91 mg/dL (65-110); Magnesium 1.5 mg/dL (1.6-2.3); Potassium 3.1 mmol/L (3.4-5.0); Sodium 135 mmol/L (137-145)
--- NOTE | 2022-11-16 07:21 | P.PNIM_ITS ---
Progress Note: A&P Assessment and Plan (1) Drainage from surgical wound: Status: Acute Assessment and Plan: The patient developed serosanguineous drainage out of her incision last weekend and she was started on doxycycline for a small area of necrotic tissue. She had a follow-up appointment today with significant amount of drainage and she was taken to the OR for irrigation debridement per Dr. Avendaño. Continue IV vancomycin and ceftriaxone, pending cultures 11/15-orthopedics aspirated 16 ml of suprapatellar hematoma. Bret remains on hold and she was started on low dose ASA BID. (2) Status post right knee replacement: Code(s): Z96.651 - Presence of right artificial knee joint Status: Acute Assessment and Plan: Status post right total knee arthroplasty on 10/29/2022. Now POD 2 for wash out. (3) Chronic kidney disease, stage 3: Code(s): N18.30 - Chronic kidney disease, stage 3 unspecified Status: Acute Assessment and Plan: Creatinine appears stable on review of previous labs. (4) Essential (primary) hypertension: Code(s): I10 - Essential (primary) hypertension Status: Acute Assessment and Plan: Blood pressures were reviewed and they have been stable. Continue antihy pertensives aside from thiazide diuretic due to electrolyte abnormalities and monitor closely. (5) Gastroesophageal reflux disease: Code(s): K21.9 - Gastro-esophageal reflux disease without esophagitis Status: Acute Assessment and Plan: No acute issues. Continue omeprazole. Plan Thank you for allowing us to participate in this patient's care. Please do not hesitate to contact us with any questions. Subjective Date/time seen: 11/16/22 07:21 Interval history: This is 67-year-old female who underwent right total knee arthroplasty on 10/29.? She had uneventful hospital stay and was having an uneventful recovery.? She started developing some drainage from her incision last weekend.? She was seen in the office this past Amy.? She had a large seroma in the knee that decompressed in the office.? She also has some early skin edge necrosis of the incision in an area of about 5 or 6 mm in length.? She was started on doxycycline 100 mg b.i.d..? She was seen again in the office today on 11/14.? The incision was continuing to drain.? The edge necrosis was still evident.? Patient is not having any severe pain in the knee and is actually doing fairly well with her range of motion with regard to her recovery from total knee arthroplasty.? The drainage that she was having in the office was rather a significant amount.? It was serosanguineous drainage.? Aspiration was done of the knee intra-articular as well as superficial and this fluid was sent off for cultures.? Dr. Avendaño felt that the safest approach is to take her to the operating room today and do a debridement as well as poly exchange of the knee replacement and wound closure. 11/15: Postop day 1 for right knee debridement and poly exchange. Patient states she is feeling well, her pain is controlled. She has been up moving around in the room today without difficulty. She seems anxious to leave today. Awaiting Orthopedics to around to see if she will discharge today or tomorrow. She denies subjective complaints of fever. She is tolerating a diet and no issues with elimination. 11/16: Ms Berrios did not sleep well overnight. She just couldn't fall asleep and then once she finally did it was close to morning labs, report,
[2022-11-16] MEDS: ACETAMINOPHEN 500 MG TABLET 1000 MG PO ×4 (08:52→23:40)
[2022-11-16] MEDS: PANTOPRAZOLE 40 MG TABLET PO (08:53)
[2022-11-16] MEDS: FUROSEMIDE 20 MG TABLET PO (08:53)
[2022-11-16] MEDS: POTASSIUM CHLORIDE 20 MEQ ER TABLET 40 MEQ PO (08:53)
[2022-11-16] MEDS: ASPIRIN 81 MG CHEWABLE TABLET PO ×2 (08:53→17:30)
[2022-11-16] MEDS: MAGNESIUM OXIDE 400 MG TABLET PO (08:53)
[2022-11-16] MEDS: IRBESARTAN 150 MG TABLET PO (08:53)
[2022-11-16 08:54] VITALS: PULSE 80
[2022-11-16] MEDS: NEBIVOLOL HCL 5 MG TABLET 20 MG PO (08:54)
[2022-11-16 09:00] VITALS: PULSE 80; RESP 20; O2SAT 100
[2022-11-16] MEDS: VANCOMYCIN ORAL 125 MG/2.5 ML SYRUP PO ×3 (09:00→17:30)
[2022-11-16] MEDS: POTASSIUM CHLORIDE 10 MEQ ER TABLET PO ×3 (12:50→21:22)
[2022-11-16 14:00] VITALS: BP 116/50; PULSE 73; RESP 18; TEMP 36.4; O2SAT 97
--- NOTE | 2022-11-16 14:03 | PM.PNORT ---
Progress Note: A&P Assessment and Plan (1) Drainage from surgical wound: Status: Acute Assessment and Plan: Hospital day 3. I put her q.i.d. 10 mEq potassium chloride supplement on hold day of surgery due to the possible interaction with scopolamine patch. I will resume today. On exam, her leg is smaller today than it was yesterday. She centrally has no swelling whatsoever calf or ankle or foot. Her incision looks well sealed. She does have some recurrence of subcutaneous fluid collection proximal to the patella. If it gets larger I may reaspirated tomorrow and I think we can observe for today. She has been up walking to the bathroom but when she is not in the bathroom she is in bed with her leg elevated on 3 pillows. I have encouraged her to have the back of her bed down a little bit so that her knee is least as high as her heart hopefully. She is walking well and not having any pain. The skin around the knee is very supple now without any significant [place] edema. We will wait until tomorrow for culture results and if these continue to be negative we will plan to discharge her on doxycycline for additional 7 days. Stitches will stay in for a minimum of 14 days. Continue with baby aspirin for 4 weeks and SCDs while she is in the hospital. Subjective Subjective Date/Time Seen: 11/16/22 14:03 Objective Data Vital Signs Vital Signs: Vital Signs - 24 hr 11/15/22 15:38 11/15/22 20:37 11/15/22 19:38 Temperature 37.3 C 37.2 C Pulse Rate 78 77 Respiratory Rate 16 20 Blood Pressure 121/52 L 112/58 L Pulse Oximetry 96 97 Oxygen Delivery Room Air 11/15/22 21:40 11/16/22 04:41 11/16/22 08:54 Temperature 36.7 C Pulse Rate 72 80 Respiratory Rate 20 Blood Pressure 138/63 Pulse Oximetry 97 100 Oxygen Delivery Room Air 11/16/22 09:00 Temperature Pulse Rate 80 Respiratory Rate 20 Blood Pressure Pulse Oximetry 100 Oxygen Delivery Room Air Intake/Output Intake/Output: Intake & Output 11/13/22 11/14/22 11/15/22 11/16/22 23:59 23:59 23:59 23:59 Intake Total 450 1280 1755 Output Total 300 1500 Balance 450 980 255 Meds/Results Medications: Active Medications Generic Name Dose Route Start Last Admin Trade Name Calixto PRN Reason Stop Dose Admin Acetaminophen 1,000 mg 11/14/22 19:00 11/16/22 12:50 Acetaminophen 500 Mg Tablet PO 1,000 mg Q6H COLIN Administration Aspirin 81 mg 11/15/22 17:00 11/16/22 08:53 Aspirin 81 Mg Chewable Tablet PO 81 mg BID COLIN Administration Furosemide 20 mg 11/15/22 09:00 11/16/22 08:53 Furosemide 20 Mg Tablet PO 20 mg DAILY COLIN Administration Ceftriaxone Sodium 1 gm in 50 mls @ 100 mls/hr 11/15/22 15:00 11/15/22 15:01 Rocephin 1 Gm/Ns 50 Ml IVPB 100 mls/hr Q24H COLIN Administration Vancomycin HCl 1,500 mg in 500 mls @ 250 mls/hr 11/15/22 16:00 11/15/22 20:13 Vancomycin 1,500 Mg/D5w 500 Ml IVPB Infused Q24H COLIN Infusion Irbesartan 150 mg 11/15/22 09:00 11/16/22 08:53 Irbesartan 150 Mg Tablet PO 150 mg QAM COLIN Administration Magnesium Oxide 400 mg 11/16/22 09:00 11/16/22 08:53 Magnesium Oxide 400 Mg Tablet PO 400 mg DAILY COLIN Administration Melatonin 5 mg 11/16/22 10:48 Melatonin 5 Mg Tablet PO HS PRN Insomnia Nebivolol 20 mg 11/15/22 09:00 11/16/22 08:54 Nebivolol Hcl 5 Mg Tablet PO 20 mg DAILY COLIN Administration Ondansetron HCl 4 mg 11/14/22 19:53 11/14/22 20:46 Ondansetron Inj 4 Mg/2 Ml Vial IV PUSH 4 mg Q6H PRN Administration Nausea And Vomiting Pantoprazole Sodium 40 mg 11/15/22 09:00 11/16/22 08:53 Pantoprazole 40 Mg Tablet PO 40 mg QAM COLIN Administration Polyethylene Glycol 17 gm 11/15/22 09:00 11/16/22 09:01 Polyethylene Glycol 3350 17 Gm Powd.Pack PO Not Given QAM COLIN Potassium Chloride 10 meq 11/16/22 13:00 11/16/22 12:50 Potassium Chloride 10 Meq Er Tablet PO 10 meq QID
[2022-11-16 16:40] LABS: Vancomycin Trough 16.6 ug/mL (10.0-20.0)
[2022-11-16 20:56] VITALS: BP 121/55; PULSE 71; RESP 18; TEMP 36.4; O2SAT 98
[2022-11-17 04:25] VITALS: BP 153/69; PULSE 82; RESP 16; TEMP 36.5; O2SAT 100
[2022-11-17 06:07] LABS: Basophils Absolute Auto 0.1 K/mm3 (0.0-0.1); Basophils Percent Auto 1.8 % (0.2-1.2); Eosinophils Absolute Auto 0.3 K/mm3 (0-0.3); Eosinophils Percent Auto 4.4 % (0-4.4); Hematocrit 33.9 % (37.0-47.0); Hemoglobin 10.6 g/dL (12.0-15.0); Immature Granulocyte Absolute 0.02 K/mm3 (0.00-0.031); Immature Granulocyte Percent A 0.4 % (0-0.5); Lymphocytes Absolute Auto 2.16 K/mm3 (0.9-3.2); Lymphocytes Percent Auto 38.3 % (18.3-44.2); Mean Corpuscular HGB Conc 31.3 g/dl (32-36); Mean Corpuscular Hemoglobin 31.3 pg (26-34); Mean Platelet Volume 11.1 fl (7.4-10.4); Monocytes Absolute Auto 0.4 K/mm3 (0.1-0.6); Monocytes Percent Auto 7.8 % (2.6-8.5); Neutrophils Absolute Auto 2.7 K/mm3 (1.3-6.7); Neutrophils Percent Auto 47.3 % (45.5-73.1); Platelet Count Result 253 k/mm3 (150-375); Red Blood Count 3.39 M/mm3 (4.2-5.4); Red Cell Distribution Width 13.2 % (11.5-14.5); White Blood Count 5.6 K/mm3 (4.5-10.0)
[2022-11-17 06:40] LABS: Anion Gap 3 mmol/L (8-16); Blood Urea Nitrogen 13 mg/dL (7-17); Calcium 8.6 mg/dL (8.4-10.2); Carbon Dioxide 26 mmol/L (22-30); Chloride 106 mmol/L (98-107); Estimated CRCL calculation 59 ml/min; Estimated Glomerular Filt Rate > 60; Glucose 97 mg/dL (65-110); Magnesium 1.2 mg/dL (1.6-2.3); Potassium 3.3 mmol/L (3.4-5.0); Sodium 135 mmol/L (137-145)
[2022-11-17] MEDS: ACETAMINOPHEN 500 MG TABLET 1000 MG PO ×2 (08:58→12:35)
[2022-11-17 08:59] VITALS: PULSE 80
[2022-11-17] MEDS: POTASSIUM CHLORIDE 10 MEQ ER TABLET PO ×2 (08:59→12:35)
[2022-11-17] MEDS: ASPIRIN 81 MG CHEWABLE TABLET PO (08:59)
[2022-11-17] MEDS: PANTOPRAZOLE 40 MG TABLET PO (08:59)
[2022-11-17] MEDS: IRBESARTAN 150 MG TABLET PO (08:59)
[2022-11-17] MEDS: MAGNESIUM OXIDE 400 MG TABLET PO (08:59)
[2022-11-17] MEDS: FUROSEMIDE 20 MG TABLET PO (08:59)
[2022-11-17] MEDS: NEBIVOLOL HCL 5 MG TABLET 20 MG PO (08:59)
[2022-11-17 09:00] VITALS: PULSE 80; RESP 16; O2SAT 100
[2022-11-17] MEDS: VANCOMYCIN ORAL 125 MG/2.5 ML SYRUP PO ×2 (09:00→12:36)
--- NOTE | 2022-11-17 09:08 | PM.IMPN ---
Progress Note: A&P Assessment and Plan (1) Drainage from surgical wound: Status: Acute Assessment and Plan: The patient developed serosanguineous drainage out of her incision last weekend and she was started on doxycycline for a small area of necrotic tissue. She had a follow-up appointment today with significant amount of drainage and she was taken to the OR for irrigation debridement per Dr. Avendaño. Continue IV vancomycin and ceftriaxone, pending cultures 11/15-orthopedics aspirated 16 ml of suprapatellar hematoma. Bret remains on hold and she was started on low dose ASA BID. (2) Status post right knee replacement: Code(s): Z96.651 - Presence of right artificial knee joint Status: Acute Assessment and Plan: Status post right total knee arthroplasty on 10/29/2022. Now POD 2 for wash out. (3) Chronic kidney disease, stage 3: Code(s): N18.30 - Chronic kidney disease, stage 3 unspecified Status: Acute Assessment and Plan: Creatinine appears stable on review of previous labs. (4) Essential (primary) hypertension: Code(s): I10 - Essential (primary) hypertension Status: Acute Assessment and Plan: Blood pressures were reviewed and they have been stable. Continue antihypertensives aside from thiazide diuretic due to electrolyte abnormalities and monitor closely. (5) Gastroesophageal reflux disease: Code(s): K21.9 - Gastro-esophageal reflux disease without esophagitis Status: Acute Assessment and Plan: No acute issues. Continue omeprazole. Plan Thank you for allowing us to participate in this patient's care. Please do not hesitate to contact us with any questions. Subjective Date/time seen: 11/17/22 09:08 Interval history: This is 67-year-old female who underwent right total knee arthroplasty on 10/29.? She had uneventful hospital stay and was having an uneventful recovery.? She started developing some drainage from her incision last weekend.? She was seen in the office this past Thursday.? She had a large seroma in the knee that decompressed in the office.? She also has some early skin edge necrosis of the incision in an area of about 5 or 6 mm in length.? She was started on doxycycline 100 mg b.i.d..? She was seen again in the office today on 11/14.? The incision was continuing to drain.? The edge necrosis was still evident.? Patient is not having any severe pain in the knee and is actually doing fairly well with her range of motion with regard to her recovery from total knee arthroplasty.? The drainage that she was having in the office was rather a significant amount.? It was serosanguineous drainage.? Aspiration was done of the knee intra-articular as well as superficial and this fluid was sent off for cultures.? Dr. Avendaño felt that the safest approach is to take her to the operating room today and do a debridement as well as poly exchange of the knee replacement and wound closure. 11/15: Postop day 1 for right knee debridement and poly exchange. Patient states she is feeling well, her pain is controlled. She has been up moving around in the room today without difficulty. She seems anxious to leave today. Awaiting Orthopedics to around to see if she will discharge today or tomorrow. She denies subjective complaints of fever. She is tolerating a diet and no issues with elimination. 11/16: Ms Berrios did not sleep well overnight. She just couldn't fall asleep and then once she finally did it was close to morning labs, report, etc. I told her I will have prn melatonin for tonight in case she would like to try it. She does have swelling around her right knee again today. I did not see it yesterday because her surgical dressing had not yet been removed by ortho but per the patient the swelling looks worse to her. She is tearful because of this and just overall frustrated with the set backs. 11/17: Patient in better spirits today.
--- NOTE | 2022-11-17 11:48 | PM.PNORT ---
Progress Note: A&P Assessment and Plan (1) Drainage from surgical wound: Status: Acute Assessment and Plan: Almost 72 hours since wd I and D superficial. Cultures neg so far. Will hold cultures 21 days. No sig change in sub Q fluid supra patella. 35 cc sero sang aspirated today. Has rom 0-130 without pain. Wd edges completely dry. Patient understands risks of wd breakdown if she is non compliant with avoiding sitting in chair . She can be up walking every hour while awake . Home on doxycycline and oral vanco for 2 weeks. Will see in office in 3 days to watch wd. Daily dressings . Keep wd dry. Subjective Subjective Date/Time Seen: 11/17/22 11:48 Objective Data Vital Signs Vital Signs: Vital Signs - 24 hr 11/16/22 14:00 11/16/22 20:56 11/16/22 20:00 Temperature 36.4 C L 36.4 C L Pulse Rate 73 71 Respiratory Rate 18 18 Blood Pressure 116/50 L 121/55 L Pulse Oximetry 97 98 Oxygen Delivery Room Air 11/17/22 04:25 11/17/22 08:59 Temperature 36.5 C Pulse Rate 82 80 Respiratory Rate 16 Blood Pressure 153/69 H Pulse Oximetry 100 Oxygen Delivery Intake/Output Intake/Output: Intake & Output 11/14/22 11/15/22 11/16/22 11/17/22 23:59 23:59 23:59 23:59 Intake Total 450 1330 2495 540 Output Total 300 1500 Balance 450 1030 995 540 Meds/Results Medications: Active Medications Generic Name Dose Route Start Last Admin Trade Name Freq PRN Reason Stop Dose Admin Acetaminophen 1,000 mg 11/14/22 19:00 11/17/22 08:58 Acetaminophen 500 Mg Tablet PO 1,000 mg Q6H COLIN Administration Aspirin 81 mg 11/15/22 17:00 11/17/22 08:59 Aspirin 81 Mg Chewable Tablet PO 81 mg BID COLIN Administration Furosemide 40 mg 11/17/22 09:05 Furosemide 40 Mg Tablet PO DAILY COLIN Ceftriaxone Sodium 1 gm in 50 mls @ 100 mls/hr 11/15/22 15:00 11/16/22 15:02 Rocephin 1 Gm/Ns 50 Ml IVPB 100 mls/hr Q24H COLIN Administration Vancomycin HCl 1,500 mg in 500 mls @ 250 mls/hr 11/16/22 18:00 11/16/22 17:30 Vancomycin 1,500 Mg/D5w 500 Ml IVPB 250 mls/hr Q24H COLIN Administration Irbesartan 150 mg 11/15/22 09:00 11/17/22 08:59 Irbesartan 150 Mg Tablet PO 150 mg QAM COLIN Administration Magnesium Oxide 400 mg 11/17/22 17:00 Magnesium Oxide 400 Mg Tablet PO BID COLIN Melatonin 5 mg 11/16/22 10:48 Melatonin 5 Mg Tablet PO HS PRN Insomnia Nebivolol 20 mg 11/15/22 09:00 11/17/22 08:59 Nebivolol Hcl 5 Mg Tablet PO 20 mg DAILY COLIN Administration Ondansetron HCl 4 mg 11/14/22 19:53 11/14/22 20:46 Ondansetron Inj 4 Mg/2 Ml Vial IV PUSH 4 mg Q6H PRN Administration Nausea And Vomiting Pantoprazole Sodium 40 mg 11/15/22 09:00 11/17/22 08:59 Pantoprazole 40 Mg Tablet PO 40 mg QAM COLIN Administration Polyethylene Glycol 17 gm 11/15/22 09:00 11/17/22 09:00 Polyethylene Glycol 3350 17 Gm Powd.Pack PO Not Given QAM COLIN Potassium Chloride 10 meq 11/16/22 13:00 11/17/22 08:59 Potassium Chloride 10 Meq Er Tablet PO 10 meq QID COLIN Administration Senna/Docusate Sodium 2 tab 11/14/22 21:00 11/17/22 09:00 Senna/Docusate Sodium Tablet PO Not Given Q12HR [facility] Tramadol HCl 50 mg 11/14/22 17:53 11/15/22 17:55 Tramadol Hcl (*Crx) 50 Mg Tablet PO 50 mg Q6H PRN Administration PAIN RATED 4-6 Vancomycin HCl 125 mg 11/14/22 18:25 11/17/22 09:00 Vancomycin Oral 125 Mg/2.5 Ml Syrup PO 125 mg TID COLIN Administration Labs Labs: Laboratory Results - last 24 hr 11/16/22 11/17/22 16:15 05:19 WBC 5.6 RBC 3.39 L Hgb 10.6 L Hct 33.9 L MCV 100.0 MCH 31.3 MCHC 31.3 L RDW 13.2 Plt Count 253 MPV 11.1 H Immature Gran % (Auto) 0.4 Neut % (Auto) 47.3 Lymph % (Auto) 38.3 [place] % (Auto) 7.8 Eos % (Auto) 4.4 Baso % (Auto) 1.8 H Lymph # (Auto) 2.16 [place] # (Auto) 0.4 Eos # (Auto) 0.3 Baso # (Auto) 0.1 Abs
--- NOTE | 2022-11-17 12:03 | PM.DS ---
DS: Admitting Diagnosis Discharge Date 11/17 Admitting Diagnosis Draining incision right knee status post total knee arthroplasty DS: Discharge Diagnosis Discharge Diagnosis (1) Status post right knee replacement: Code(s): Z96.651 - Presence of right artificial knee joint Status: Acute DS: Summary Hospital Course Hospital Course: 67-year-old female was admitted on 11/14 due to draining seroma following total knee arthroplasty. She underwent irrigation and debridement of her wound. Arthrotomy was found to be well sealed and was not open. She had fluid drawn intra-articular as well as extra-articular from the knee. All cultures have been negative up to this point. It has been 3 days. She has been on Rocephin as well as vancomycin in the hospital while cultures were pending. Patient's pain overall has been minimal. She is only take Tylenol for pain. She is on a baby aspirin twice a day for DVT prophylaxis at this point. She did have additional aspiration done in the knee in her hospital room on 11/17. Two be discharged home on 11/17. She home with doxycycline 100 mg b.i.d for 2 weeks. We will also send her home on vancomycin 125 b.i.d. for C diff prophylaxis. Patient will be seen in the office in 2 days for wound check. She was advised to keep leg elevated home. She is not be sitting in the chair at all. Time Spent with Patient Time attestation: Total time spent providing and/or coordinating discharge services: DS: Data Data Completed and Pending Pending studies at discharge: Pending at discharge 11/14/22 16:05 Surgical [PTH] Routine Labs on day of discharge: Labs from last 24 hours 11/17/22 11/16/22 05:19 16:15 WBC 5.6 RBC 3.39 L Hgb 10.6 L Hct 33.9 L MCV 100.0 MCH 31.3 MCHC 31.3 L RDW 13.2 Plt Count 253 MPV 11.1 H Immature Gran % (Auto) 0.4 Neut % (Auto) 47.3 Lymph % (Auto) 38.3 [place] % (Auto) 7.8 Eos % (Auto) 4.4 Baso % (Auto) 1.8 H Lymph # (Auto) 2.16 Pepin # (Auto) 0.4 Eos # (Auto) 0.3 Baso # (Auto) 0.1 Abs Immat Gran (auto) 0.02 Absolute Neuts (auto) 2.7 Absolute Nucleated RBC 0.0 Nucleated RBC % 0.0 Sodium 135 L Potassium 3.3 L Chloride 106 Carbon Dioxide 26 Anion Gap 3 L BUN 13 D Creatinine 0.90 Estim Creat Clear Calc 59 Estimated GFR > 60 Glucose 97 Calcium 8.6 Magnesium 1.2 L Vancomycin Trough 16.6 Preliminary micro results at discharge 11/14/22 15:44 Anaerobic Culture - Preliminary Knee Right Aerobic Culture - Preliminary 11/14/22 13:31 Anaerobic Culture - Preliminary Knee Right Aerobic Culture - Preliminary 11/14/22 13:30 Anaerobic Culture - Preliminary Knee Right Aerobic Culture - Preliminary 11/14/22 15:50 Anaerobic Culture - Preliminary Knee Right Aerobic Culture - Preliminary Discharge Plan Discharge Attending physician on discharge: Aj Avendaño Consulting providers: Stephany Lombardi Discharging Clinician: Josafat Marte Anticipated Discharge Date/Time: 11/17/22 11:55 Patient Disposition: Home, Self-Care Activity: no shower Diet: as tolerated Wound Care Instructions: change dressing daily Discharge Instructions: Patient is to keep leg elevated home with foot higher than heart. Patient should not be sitting in the chair. Patient Instructions: Antibiotic Form Stand Alone Forms: General Discharge Information Follow-up/Referrals: Aj Avendaño MD [Physician] - 11/20/22 Discharge Medications: New doxycycline hyclate 100 mg tablet 100 mg PO BID Qty: 28 0RF aspirin [Children's Aspirin] 81 mg Tablet,Chewable 81 mg PO BID Qty: 60 0RF vancomycin [Vancocin] 125 mg capsule 125 mg PO DIRECTED Qty: 28 0RF Rx Instructions: take 125 mg 4 times per day for 10 days; 2 times per day for 7 days; once daily for 7 days; once every 2-3 days for 2-8 weeks Continued magnesium 200 mg tablet 200 mg PO DAILY Qt
== END 2022-11-17 13:18 | disposition home or self-care (01) | DRG 921 ==
LOC: ANH3MED 18:10 → ANHSURGERY 11-18 17:40 → ANH3MEDSUR 11-18 17:41
PROVIDERS: Nurse Practitioner Acute Care; Admitting Provider Orthopaedic Surgery; PCP Family Medicine; Visit Provider Physician Assistant Surgical
PROC: 0HBKXZZ Excision of Right Lower Leg Skin, External Approach (ICD-10-PCS; CPT 27447; principal; 2022-11-14 16:30)
DX: M96.842 Postprocedural seroma of a musculoskeletal structure following a musculoskeletal system procedure (principal); I12.9 Hypertensive chronic kidney disease with stage 1 through stage 4 chronic kidney disease, or unspecified chronic kidney disease; N18.30 Chronic kidney disease, stage 3 unspecified; E87.8 Other disorders of electrolyte and fluid balance, not elsewhere classified; K21.9 Gastro-esophageal reflux disease without esophagitis; M48.061 Spinal stenosis, lumbar region without neurogenic claudication; Z96.651 Presence of right artificial knee joint; Z87.891 Personal history of nicotine dependence
CPT/HCPCS: 36415; 80048; 80053; 80202; 83735; 84100; 85025; 85652; 86140; 87070; 87075; 87205; 89051; A9270; J0696; J1100; J2405; J2704; J3370; J7030; J7120

== ENCOUNTER 2023-08-14 13:28 | Outpatient (CLI) | payer MEDICARE, SELFPAY ==
--- NOTE | ~2023-08-14 | XR_ITS ---
EXAMINATION: XR finger 1st RT min 2V DATE: 08/14/2023 13:44 INDICATION: Localized swelling, mass and lump at the right thumb TECHNIQUE: Dorsal palmar, lateral and oblique views of the right first digit were obtained COMPARISON: None FINDINGS: Bone alignment is normal. No fracture. Chondrocalcinosis in the region of the triangular fibrocartila ge complex. Polyarticular osteoarthritis, moderate to severe at the triscaphe and first carpal metaca rpal joints, mild to moderate severity at the first metacarpophalangeal joint and mild at the first i nterphalangeal joint. There is a lucency at the ulnar styloid process without evident overlying corti evelin interruption which could represent either degenerative subchondral cystic change or potentially a n erosion. There is subtle amorphous calcific density along the dorsal margin of the first carpometac arpal and first interphalangeal joints which could represent calcific debris related to osteoarthriti s although this could also represent dystrophic calcific a horton related to a crystalline deposition d iseases such as gout which would also explain the lucency at the ulnar styloid process. There is soft tissue swelling about the first interphalangeal joint. IMPRESSION: 1. Polyarticular osteoarthritis, moderate to severe at the triscaphe and first carpal metacarpal join ts. 2. Chondrocalcinosis in the region of the triangular fibrocartilage complex as well as periarticular calcific density at the first carpometacarpal and first interphalangeal joints which could be degener ative in etiology or dystrophic calcification related to crystal deposition diseases such as gout or calcium pyrophosphate deposition (CPPD) disease. 3. Degenerative cystic change versus erosion at the ulnar styloid process Reviewed, dictated and finalized at location A. IMPRESSION: 1. Polyarticular osteoarthritis, moderate to severe at the triscaphe and first carpal metacarpal joints. 2. Chondrocalcinosis in the region of the triangular fibrocartilage complex as well as periarticular calcific density at the first carpometacarpal and first i nterphalangeal joints which could be degenerative in etiology or dystrophic evelin cification related to crystal deposition diseases such as gout or calcium pyrop hosphate deposition (CPPD) disease. 3. Degenerative cystic change versus erosion at the ulnar styloid process
== END 2023-08-14 13:29 | disposition home or self-care (01) ==
PROVIDERS: PCP Family Medicine; Visit Provider Family Medicine
DX: M19.041 Primary osteoarthritis, right hand (principal); M11.241 Other chondrocalcinosis, right hand
CPT/HCPCS: 73140

== ENCOUNTER 2024-10-20 06:33 | Outpatient (CLI) | payer MEDICARE, SELFPAY ==
--- NOTE | ~2024-10-20 | MR_ITS ---
EXAMINATION: MR hand RT wo/w con DATE: 10/20/2024 07:39 INDICATION: Localized periarticular swelling at the metacarpophalangeal joints. TECHNIQUE: Magnetic resonance imaging (MRI) of the right hand was performed without and with 18 mL Mu ltihance intravenous contrast to include the metacarpals and digits. Sequences axial, sagittal and co rolando T1-weighted FSE and T2-weighted FS FSE, axial T1-weighted FS FSE and postcontrast axial, sagitt al and coronal T1-weighted FS FSE. COMPARISON: Radiographs of the right thumb dated 08/14/2023 FINDINGS: Bone alignment is normal.. No fracture. There is polyarticular osteoarthritis, moderate severity sonam caphe and first carpal metacarpal joints, moderate severity at the first metacarpophalangeal joint an d first interphalangeal joint and mild at the remaining metacarpophalangeal, interphalangeal joints a nd remaining joints of the carpus. No enhancing erosions at the radial aspect of the head of the thir d metacarpal, at the radial aspect of the base of the third proximal phalanx where there is thickenin g and mild increased signal of the radial collateral ligament complex which could be either degenerat lolis, inflammatory or post traumatic in etiology. Additional enhancing erosions at the distal pole of the scaphoid. Subarticular cystlike changes versus additional early erosions at the base of the first metacarpal. Finally there is low T1 and intermediate T2 and mild tertiary enhancing tissue surroundi ng the first interphalangeal joint with suggestion of associated small erosions at the base of the fi rst distal phalanx. The visualized flexor and extensor tendons are normal. There is a small amount of T2 hyperintense and enhancing tenosynovitis extending along the flexor tendons to the second digit. The tendons appear mildly thickened with mild intrasubstance signal posterior to the metacarpophalang eal joint consistent with mild tendinopathy but without discrete tear. There is no surrounding soft t issue edema or enhancement to suggest a septic tenosynovitis. Physiologic amount fluid in the joint s pace. Small multilobulated ganglion cyst positioned palmar to the neck of the second metacarpal with extension of a small component of the tendon cyst which is positioned palmar/ulnar to the second meta carpophalangeal joint space. IMPRESSION: 1. Polyarticular osteoarthritis, moderate to severe at the radial aspect of the carpus, moderate at t he first metacarpophalangeal and interphalangeal joints and otherwise mild. 2. A few enhancing erosions at the radial side of the third metacarpophalangeal joint where there are some associated thickening and increased signal of the radial collateral ligament, the distal pole o f the scaphoid at the base of the first interphalangeal joint where there is some surrounding enhanci ng tissue. 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 Differential would include less likely other inflammatory arthri tis such as rheumatoid. 3. Mild tendinopathy along the flexor tendons of the index finger with mild surrounding tenosynovitis with similar differential including gout, inflammatory arthritis such as rheumatoid, trauma or less likely infection. Reviewed, dictated and finalized at location A. IMPRESSION: 1. Polyarticular osteoarthritis, moderate to severe at the radial aspect of the carpus, moderate at the first metacarpophalangeal and interphalangeal joints a nd otherwise mild. 2. A few enhancing erosions at the radial side of the third metacarpophalangeal joint where there are some associated thickening and increased signal of the r adial collateral ligament, the distal pole of the scaphoid at the base of the f irst interphalangeal joint where there is some surrounding enhancing tissue. 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 Differentia l would include less likely other inflammatory arthritis such as rheumatoid. 3. Mild tendinopathy along the flexor tendons of the index finger with mild dominick rounding tenosynovitis with similar differential including gout, inflammatory a rthritis such as rheumatoid, trauma or less likely infection.
--- OUTSIDE RECORDS SUMMARY | 2024-10-20 06:36 | XMS_ITS | Clinical Summary ---
Author Organization [facility] Address [address] [place] [id number] Care Team Providers Care Title Agent Name Role Phone Charly Brown MD Primary Care Provider [phone] Allergies Active Allergy Reactions Criticality Noted Date Comments Hydrocodone Nausea & Vomiting Low 10/20/2023 Penicillins Unknown 10/20/2023 Reaction as a child Sulfa (Sulfonamide Antibiotics) Unknown 10/20/2023 Reaction as a child Medications traMADoL (ULTRAM) 50 mg tablet Take by mouth every 6 (six) hours as needed Active ibuprofen (ADVIL,MOTRIN) 800 mg tablet Take 1 tablet (800 mg total) by mouth 2 (two) times a day 10/05/2023 Active potassium chloride ER 10 mEq CR capsule Take 1 capsule by mouth 4 (four) times a day Active omeprazole (PriLOSEC) 20 mg capsule Take 1 capsule (20 mg total) by mouth daily 08/03/2023 Active nebivoloL (BYSTOLIC) 20 mg tablet Take 1 tablet (20 mg total) by mouth daily Active irbesartan-hydr ochlorothiazide (AVALIDE) 150-12.5 mg per tablet Take 1 tablet by mouth daily Active hydroCHLOROthia zide (MICROZIDE) 12.5 mg capsule Take 1 capsule (12.5 mg total) by mouth daily Active furosemide (LASIX) 20 mg tablet Take 1 tablet (20 mg total) by mouth every morning Active magnesium gluconate 200 mg tabletIndicatio ns:hypomagnesem ia 1 tablet (200 mg total) Active Active Problems Problem Noted Date Diagnosed Date Osteoarthritis of left knee 05/07/2023 History of total right knee replacement 11/15/19 23 Osteoarthritis of right knee 10/21/2022 Osteoarthritis of both knees 07/09/2022 Arthralgia of both knees 04/08/2022 Surgical History Surgery Date Site/Laterality Comments TOTAL KNEE ARTHROPLASTY Right LUMBAR SPINE SURGERY 10/22/2019 - 11/21/2019 BLADDER SUSPENSION 07/22/2015 - 08/21/2015 Medical History Medical History Date Comments GERD (gastroesophageal reflux disease) Hypertension Arthritis Family History Medical History Relation Name Comments Hyperlipidemia Brother Hypertension Brother Autoimmune disease Mother Liver cancer Mother Relation Name Status Comments Brother Mother Social History Tobacco Use Types Packs/Day Years Used Date Smoking Tobacco: Former Cigarettes Q uit: 1995 Smokeless Tobacco: Never Tobacco Cessation:Counseling Given: Not Answered Personal Safety Answer Date Recorded Getting School Help Needed Not on file 06/06 Comments Unknown Sex and Gender Information Value Date Recorded Sex Assigned at Not on file 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 Gender Identity Not on file Sexual Orientation Not on file Obstetrics History Last Filed Vital Signs Vital Sign Reading Time Taken Comments Blood Pressure - - Pulse - - Temperature - - Respiratory Rate - - Oxygen Saturation - - Inhaled Oxygen Concentration - - Weight 88.9 kg (196 lb) 10/20/2023 7:42 AM CDT Height 170.2 cm (5' 7) 10/20/2023 7:42 AM CDT Body Mass Index 30.7 10/20/2023 7:42 AM CDT Plan of Treatment Health Maintenance Due Date Last Done Comments Breast Cancer Screening-Mammogram 1955 Colon Cancer Screening-Colonoscopy 1955 Depression Screening 1955 Fall Risk Assessment 1955 Hepatitis C Screening 1955 Osteoporosis Screening-Bone Density Scan 1955 DTaP/Tdap/Td Vaccine (1 - Tdap) 1964 Hepatitis B Screening 08/15/1971 Pneumococcal vaccine 65+ (1 of 1 - PCV) 08/15/2003 Zoster Vaccine (1 of 2) 08/15/2003 Well Visit 65+ 2018 Covid-19 Vaccine (4 - season) 2023 03/29/2021, 06/11/2020, 05/14/2020 Influenza Vaccine (#1) 2024 Insurance MEDICARE [facility] MEDICARE Care Teams Title Agent Relationship Specialty Start Date End Date Charly Brown MD [address] [place] [address] PCP - General Family Medicine 07/06/23
--- OUTSIDE RECORDS SUMMARY | 2024-10-20 06:36 | XMS_ITS | Referral Summary ---
Author Organization [facility] Address [address] [place] [id number] Care Team Providers Care Excel Expert Name Role Phone Charly Brown MD Primary Care Provider [phone] Allergies Active Allergy Reactions Criticality Noted Date [...] History of total right knee replacement 11/15/19 Osteoarthritis of right knee 10/21/2022 Osteoarthritis of both knees 07/09/2022 Arthralgia of both knees 04/08/2022 Social History Tobacco Use Types Packs/Day Years Used Date Smoking Tobacco: Former Cigarettes Q uit: 1995 Smokeless Tobacco: Never Tobacco Cessation:Counseling Given: Not Answered Personal Safety Answer Date Recorded Getting School Help Needed Not on file 06/06 Comments Unknown Sex and Gender Information Value Date Recorded Sex Assigned at Not on file 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 Gender Identity Not on file Sexual Orientation Not on file Last Filed Vital Signs Vital Sign Reading Time Taken Comments Blood Pressure - - Pulse - - Temperature - - Respiratory Rate - - Oxygen Saturation - - Inhaled Oxygen Concentration - - Weight 88.9 kg (196 lb) 10/20/2023 7:42 AM CDT Height 170.2 cm (5' 7) 10/20/2023 7:42 AM CDT Body Mass Index 30.7 10/20/2023 7:42 AM CDT Plan of Treatment Not on file Insurance MEDICARE [facility] MEDICARE Care Teams Excel Expert Relationship Specialty Start Date End Date Charly Brown MD [address] [place] [place] [address] PCP - General Family Medicine 07/06/23
== END 2024-10-20 06:34 | disposition home or self-care (01) ==
PROVIDERS: PCP Family Medicine; Visit Provider Physician Assistant Surgical
DX: M25.531 Pain in right wrist (principal); M15.4 Erosive (osteo)arthritis; M65.241 Calcific tendinitis, right hand; M65.841 Other synovitis and tenosynovitis, right hand
CPT/HCPCS: 73220; A9577

== ENCOUNTER 2025-02-14 08:00 | Outpatient (RCR) | payer MEDICARE, SELFPAY ==
--- NOTE | 2024-11-30 08:57 | PTOPEVAL1 ---
Assessment and note entered by Noemi Garcia, PT Evaluation Information Assessment Status Evaluation ICD-10 Condition Codes (PT) Pain in right knee M25.561,Weakness R53.1 Subjective Information right total knee replacement 2022 or 2023 Pt states went to therapy because couldn't loose weight, to focus on stamina, riding a bike, etc. States was doing LAQ with 2 lb weights and this triggered knee problem. Say Bhavik one day end of August, and did x-rays so replacement is ok, was told to stop therapy. October saw Dr. Avendaño for a cortisone shot for the left knee and told Kateryna at this point. Was provided a heel lift the day of surgery for her left shoe because of the right leg being longer. Reports tried to wear it, and her PT at the time gave her a different one and Dr Real didn't like that one and so she gave up wearing this. [place] like it made her limp more. Reported Pain Level Pain Score 0: Self Report Assessment PT Clinical Summary Pt presents with complaints of right knee pain that began while she was performing PT at another location. Pain is centered around knee cap, and is the worst 6/10 with going up stairs, at rest is a 0/10. She demonstrates transverse abdominal weakness, cassy hip weakness in the glutes R>L, and leg length discrepancy which she is not currently applying her heel lift for. She did not bring a cane today and was advised to bring to next session for setting of height and use for ambulation for four weeks to offload right hip. Pt will benefit from therapy in order to address weakness, improve alignment and stability, and reduce overall pain to allow her to be more functional and meet her goals. Plan of Care Interventions Electrical Stimulation,Gait Training,Hot Pack/Cold Pack,Manual Therapy,Neuro Re-education,Patient/ Caregiver Education,Therapeutic Activities, Therapeutic Exercise,Other Other Interventions Taping PT Services Indicated Yes Treatment Frequency and 2x weekly x 8 visits Duration These treatments will address the objective and functional deficits as defined above. The patient will be advanced safely and appropriately in order for the patient to progress towards his/her prior level of function. Additional exercises will be introduced and as well as a comprehensive home exercise program upon discharge, if needed, ?to ensure carryover of functional gains achieved in the clinic. This treatment plan has been reviewed and agreement upon by the patient.
--- NOTE | 2024-11-30 08:58 | OPREHPOC ---
Outpatient Therapy Plan of Care This is a Multidisciplinary Plan of Care that may contain components documented by all disciplines (PT, OT, and ST.) PT Problem 1 PT Problem #1 Knowledge Deficit PT Goal 1 Goal / Goal Update Pt will be independent in HEP Pt will verbalize understanding of diagnosis and prognosis Target Visit 8 PT Problem 2 PT Problem #2 Pain PT Goal 1 Goal / Goal Update Pt will report greatest pain level at 3/10 or less to improve ADLs and activities Target Visit 8 PT Goal 2 Goal / Goal Update Pt will report resolution of pain to return to PLOF Target Visit 16 PT Problem 3 PT Problem #3 Impaired Strength PT Goal 1 Goal / Goal Update Pt will demo equal strength RLE and LLE in all tested planes Target Visit 8 PT Goal 2 Goal / Goal Update Pt will demo core strength of 3+/5 of the TRAM to improve lumbopelvic stability Pt will demo 4/5 or greater strength in BLE to improve knee stability and kinematics with activities Target Visit 16
--- NOTE | 2025-01-17 09:00 | PTOPPROG ---
Assessment and note entered by Yonas Duenas, PT Evaluation Information Assessment Status Progress ICD-10 Condition Codes (PT) Pain in right knee M25.561,Weakness R53.1 Subjective Information Pt states she feels like she has made 30% improvement since starting physical therapy. She notes her R leg (hip) and core muscles feels a little bit stronger. However she states she has continued difficulty with increase pain in FELICIANO knees and lower back limiting ability with stairs or getting up from a low chair. Pt states she has discontinued use of heel lift and has been using cane in community for the past weeks but does not use it at home. She reports she does not like using cane and does not feel it helps. Assessment PT Clinical Summary The patient continues to report persistent right ( R) knee pain due to functional deficits in the kinetic chain. Measurable improvement has been noted in R gluteus medius strength, increasing from Manual Muscle Test . However, strength deficits remain, resulting in poor motor control during dynamic activities. A new assessment revealed an asymmetry where the L hip exhibits greater passive mobility than the R hip. Continued skilled physical therapy is warranted, focusing on the relationship between muscular weakness and joint mobility asymmetry to improve knee stability. The plan of care will reinforce open-chain gluteus medius strengthening with a critical focus on form, and an updated Home Exercise Program was issued to address the persistent deficits and R hip mobility and strength. Plan of Care Interventions Electrical Stimulation,Gait Training,Hot Pack/Cold Pack,Manual Therapy,Neuro Re-education,Patient/ Caregiver Education,Therapeutic Activities, Therapeutic Exercise,Other Other Interventions Taping PT Services Indicated Yes Treatment Frequency and 1-2x week for 8 visits Duration These treatments will address the objective and functional deficits as defined above. The patient will be advanced safely and appropriately in order for the patient to progress towards his/her prior level of function. Additional exercises will be introduced and as well as a comprehensive home exercise program upon discharge, if needed, ?to ensure carryover of functional gains achieved in the clinic. This treatment plan has been reviewed and agreement upon by the patient.
== END 2025-02-28 23:59 | disposition home or self-care (01) ==
LOC: ANHGOSHPT 08:00
PROVIDERS: PCP Family Medicine; Visit Provider Orthopaedic Surgery
DX: M25.561 Pain in right knee (principal); M25.551 Pain in right hip; M54.50 Low back pain, unspecified; G89.29 Other chronic pain
CPT/HCPCS: 97110; 97112; 97116; 97140; 97162; 97530

== ENCOUNTER 2025-03-22 08:00 | Outpatient (RCR) | payer MEDICARE, SELFPAY ==
--- NOTE | 2025-03-22 08:37 | PTOPDC ---
Assessment and note entered by Yonas Duenas, PT Evaluation Information Assessment Status Discharge ICD-10 Condition Codes (PT) Pain in right knee M25.561,Weakness R53.1 Subjective Information Pt states she feels like she has made improvements with therapy and has significantly less R knee and hip pain. More recently she has had increased L knee pain and believes her injection has almost wore off. Pt states she is pleased progress but knows she will need a L TKA at some point. Reported Pain Level Pain Score 1: Self Report Assessment PT Clinical Summary The patient reports significant improvements in right knee and hip pain, though she notes a recent increase in left knee symptoms as her previous injection wears off. Overall, she has demonstrated objective progress in mobility, strength, and functional use of the extremities, successfully meeting several therapy goals. While she anticipates a future left TKA, she is pleased with her current outcomes and is being discharged today with an updated home exercise program focusing on hip strengthening and maintaining L Knee ROM. Plan of Care PT Services Indicated No
== END 2025-03-22 08:52 | disposition home or self-care (01) ==
LOC: ANHGOSHPT 08:00
PROVIDERS: PCP Family Medicine; Visit Provider Orthopaedic Surgery
DX: M25.561 Pain in right knee (principal); M25.551 Pain in right hip; M54.50 Low back pain, unspecified; G89.29 Other chronic pain
CPT/HCPCS: 97110; 97112; 97530